=== PATIENT | female | born 1955 | race Two or more races ===

== ENCOUNTER 2016-08-23 18:29 | Emergency (ER) | payer SELFPAY ==
[2016-08-23 18:34] VITALS: BP 141/73
--- NOTE | 2016-08-23 18:39 | ER Document Report ---
ED Medical Screen (RME) - General Stated Complaint: URINARY PROBLEM Time seen by provider: 18:37 Mode of Arrival: Ambulatory Information source: Patient Notes: 60-year-old female complaining of bladder discomfort for 2 days with dysuria frequency and urgency. She also had hematuria. Status post hysterectomy 1995. No fever. sHe is nauseated but she has not thrown up. She points to her right low back which hurts, it is below the flank. I have greeted and performed a rapid initial assessment of this patient. A comprehensive ED assessment, evaluation of the patient, analysis of test results , and completion of the medical decision making process will be conducted by additional ED providers. TRAVEL OUTSIDE OF THE [place] IN LAST 30 DAYS: No - Related Data Allergies/Adverse Reactions: vancomycin [Vancomycin] Allergy (Severe, Verified 08/23/16 18:35) itching-generalizd Penicillins Allergy (Intermediate, Verified 08/23/16 18:35) Hives aspirin [Aspirin] Allergy (Mild, Verified 08/23/16 18:35) Nausea Past Medical History - Past Medical History Cardiac Medical History: Reports: Hx Hypercholesterolemia, Hx Hypertension Denies: Hx Atrial Fibrillation, Hx Congestive Heart Failure, Hx Coronary Artery Disease, Hx Heart Attack, Hx Peripheral Vascular Disease, Hx Pulmonary Embolism, Hx Heart Murmur Pulmonary Medical History: Reports: Hx Asthma, Hx Bronchitis, Hx Pneumonia Denies: Hx COPD, Hx Respiratory Failure, Hx Sleep Apnea, Hx Tuberculosis Neurological Medical History: Denies: Hx Seizures Endocrine Medical History: Denies: Hx Diabetes Mellitus Type 1, Hx Diabetes Mellitus Type 2 Malignancy Medical History: Reports: Hx Breast Cancer. Denies: Hx Lung Cancer GI Medical History: Reports: Hx Gastroesophageal Reflux Disease, Hx Hiatal Hernia. Denies: Hx Crohn's Disease, Hx Irritable Bowel, Hx Liver Failure, Hx Ulcer Musculoskeltal Medical History: Reports Hx Arthritis, Denies Hx Fibromyalgia, Denies Hx Muscular Dystrophy Psychiatric Medical History: Reports: Hx Depression Traumatic Medical History: Reports: Hx Fractures - ankle Past Surgical History: Reports: Hx Breast Surgery - benign tumors removed 1 in R breast, 3 in Left, Hx Cardiac Catheterization, Hx Cholecystectomy, Hx Hysterectomy, Hx Orthopedic Surgery - right ankle, Hx Tubal Ligation. Denies: Hx Appendectomy, Hx Bowel Surgery, Hx Section, Hx Colostomy, Hx Coronary Artery Bypass Graft, Hx Gastric Bypass Surgery, Hx Herniorrhaphy, Hx Mastectomy, Hx Pacemaker, Hx Tonsillectomy - Immunizations Hx Diphtheria, Pertussis, Tetanus Vaccination: Yes Physical Exam - Vital signs Vitals: Temp Pulse Resp BP Pulse Ox 97.4 F 74 16 141/73 H 95 08/23/16 18:33 08/23/16 18:33 08/23/16 18:33 08/23/16 18:33 08/23/16 18:33 Course - Vital Signs Vital signs: Temp Pulse Resp BP Pulse Ox 97.4 F 74 16 141/73 H 95 08/23/16 18:33 08/23/16 18:33 08/23/16 18:33 08/23/16 18:33 08/23/16 18:33
[2016-08-23 19:17] LABS: ABSOLUTE EOSINOPHILS # (AUTO) 0.2 10^3/uL (0.0-0.6); ABSOLUTE LYMPHOCYTES (AUTO) 1.6 10^3/uL (0.5-4.7); ABSOLUTE MONOCYTES (AUTO) 0.5 10^3/uL (0.1-1.4); ABSOLUTE NEUT (AUTO) 3.8 10^3/uL (1.7-8.2); BASOPHILS % (AUTO) 0.5 % (0-2); EOSINOPHILS % (AUTO) 2.8 % (0-6); HEMATOCRIT 41.7 % (36.0-47.0); HEMOGLOBIN 14.3 g/dL (12.0-15.5); HGB HCT DIFFERENCE 1.2; LYMPHOCYTES % (AUTO) 25.8 % (13-45); MEAN CORPUSCULAR HEMOGLOBIN 30.1 pg (27.0-33.4); MEAN CORPUSCULAR HGB CONC 34.3 g/dL (32.0-36.0); MEAN CORPUSCULAR VOLUME 88 fl (80-97); MONOCYTES % (AUTO) 8.6 % (3-13); RED BLOOD COUNT 4.74 10^6/uL (3.72-5.28); RED CELL DISTRIBUTION WIDTH 14.2 % (11.5-14.0); SEGMENTED NEUTROPHILS % (AUTO) 62.3 % (42-78); WHITE BLOOD COUNT 6.1 10^3/uL (4.0-10.5)
[2016-08-23 19:31] LABS: APPEARANCE,URINE SLIGHTLY-CLOUDY; BILIRUBIN,URINE NEGATIVE (NEGATIVE); GLUCOSE, URINE NEGATIVE (NEGATIVE); KETONES,URINE NEGATIVE (NEGATIVE); LEUKOCYTE ESTERASE,URINE NEGATIVE (NEGATIVE); NITRITE,URINE NEGATIVE (NEGATIVE); PROTEIN,URINE 30 mg/dL (NEGATIVE); URINE SPECIFIC GRAVITY 1.018; UROBILINOGEN,URINE NEGATIVE mg/dL (<2.0)
[2016-08-23] MEDS ORDERED: NITROFURANTOIN MONOHYD/M-CRYST 100 MG CAPSULE PO ONE (19:37)
[2016-08-23] MEDS ORDERED: IBUPROFEN 600 MG TABLET PO ONE (19:37)
--- NOTE | 2016-08-23 19:38 | ER Document Report ---
ED GI/ - General Chief Complaint: Pain With Urination Stated Complaint: URINARY PROBLEM Time seen by provider: 19:37 Mode of Arrival: Ambulatory Information source: Patient TRAVEL OUTSIDE OF THE [place] IN LAST 30 DAYS: No - HPI Patient complains to provider of: Abdominal pain, Dysuria, Hematuria Onset: Other - 4 days Timing/Duration: Persistent Quality of pain: Achy, Fullness, Pressure Pain Level: 3 Location: Suprapubic Vaginal bleeding (Compared to normal period): None Associated symptoms: Dysuria, Hematuria, Nausea Exacerbated by: Denies Relieved by: Denies Similar symptoms previously: No Recently seen / treated by doctor: No Notes: 08/24/16 03:54 Patient is a 60-year-old female who presents to the emergency room complaining of suprapubic pain with dysuria and hematuria as well as mild nausea and back pain that started approximately 4 days ago and has worsened, she denies any fever, no vomiting or diarrhea - Related Data Allergies/Adverse Reactions: vancomycin [Vancomycin] Allergy (Severe, Verified 08/23/16 18:35) itching-generalizd Penicillins Allergy (Intermediate, Verified 08/23/16 18:35) Hives aspirin [Aspirin] Allergy (Mild, Verified 08/23/16 18:35) Nausea Past Medical History - General Information source: Patient - Social History Smoking Status: Unknown if Ever Smoked Chew tobacco use (# tins/day): No Frequency of alcohol use: None Drug Abuse: None Family History: Reviewed & Not Pertinent Patient has suicidal ideation: No Patient has homicidal ideation: No - Past Medical History Cardiac Medical History: Reports: Hx Hypercholesterolemia, Hx Hypertension Denies: Hx Atrial Fibrillation, Hx Congestive Heart Failure, Hx Coronary Artery Disease, Hx Heart Attack, Hx Peripheral Vascular Disease, Hx Pulmonary Embolism, Hx Heart Murmur Pulmonary Medical History: Reports: Hx Asthma, Hx Bronchitis, Hx Pneumonia Denies: Hx COPD, Hx Respiratory Failure, Hx Sleep Apnea, Hx Tuberculosis Neurological Medical History: Denies: Hx Seizures Endocrine Medical History: Denies: Hx Diabetes Mellitus Type 1, Hx Diabetes Mellitus Type 2 Renal/ Medical History: Denies: Hx Peritoneal Dialysis Malignancy Medical History: Reports: Hx Breast Cancer. Denies: Hx Lung Cancer GI Medical History: Reports: Hx Gastroesophageal Reflux Disease, Hx Hiatal Hernia. Denies: Hx Crohn's Disease, Hx Irritable Bowel, Hx Liver Failure, Hx Ulcer Musculoskeltal Medical History: Reports Hx Arthritis, Denies Hx Fibromyalgia, Denies Hx Muscular Dystrophy Psychiatric Medical History: Reports: Hx Depression Traumatic Medical History: Reports: Hx Fractures - ankle Past Surgical History: Reports: Hx Breast Surgery - benign tumors removed 1 in R breast, 3 in Left, Hx Cardiac Catheterization, Hx Cholecystectomy, Hx Hysterectomy, Hx Orthopedic Surgery - right ankle, Hx Tubal Ligation. Denies: Hx Appendectomy, Hx Bowel Surgery, Hx Section, Hx Colostomy, Hx Coronary Artery Bypass Graft, Hx Gastric Bypass Surgery, Hx Herniorrhaphy, Hx Mastectomy, Hx Pacemaker, Hx Tonsillectomy - Immunizations Hx Diphtheria, Pertussis, Tetanus Vaccination: Yes Hx Pneumococcal Vaccination: 07/23/10 Review of Systems - Review of Systems Constitutional: No symptoms reported EENT: No symptoms reported Cardiovascular: No symptoms reported Respiratory: No symptoms reported Gastrointestinal: See HPI Genitourinary: See HPI Female Genitourinary: No symptoms reported Musculoskeletal: No symptoms reported Skin: No symptoms reported Hematologic/Lymphatic: No symptoms reported Neurological/Psychological: No symptoms reported -: Yes All other systems reviewed and negative Physical Exam - Vital signs Vitals: Temp Pulse Resp BP Pulse Ox 97.4 F 74 16 141/73 H 95 08/23/16 18:33 08/23/16 18:33 08/23/16 18:33 08/23/16 18:33 08/23/16 18:33 Interpretation: Normal - General General appearance: Appears well, Alert - HEENT Head: Normocephalic, Atraumatic Eyes: Normal Pupils: PERRL - Respiratory Respiratory status: No respiratory distress Chest status: Nontender Breath sounds: Normal Chest palpation: Normal - Cardiovascular Rhythm: Regular Heart sounds: Normal auscultation Murmur: No - Abdominal Inspection: Normal Distension: No distension Bowel sounds: Normal Tenderness: Tender - Suprapubic Organomegaly: No organomegaly - Back Back: Normal, Nontender. No: CVA tenderness - Extremities General upper extremity: Normal inspection, Nontender, Normal color, Normal ROM , Normal temperature General lower extremity: Normal inspection, Nontender, Normal color, Normal ROM , Normal temperature, Normal weight bearing. No: Jules's sign - Neurological Neuro grossly intact: Yes Cognition: Normal Orientation: AAOx4 [place] Coma Scale Eye Opening: Spontaneous Renny Coma Scale Verbal: Oriented Renny Coma Scale Motor: Obeys Commands Renny Coma Scale Total: 15 Speech: Normal Motor strength normal: LUE, RUE, LLE, RLE Sensory: Normal - Psychological Associated symptoms: Normal affect, Normal mood - Skin Skin Temperature: Warm Skin Moisture: Dry Skin Color: Normal Course - Re-evaluation Re-evalutation: 08/24/16 03:55 Patient with evidence of urinary tract infection on urinalysis, symptoms antibiotics and advised to follow-up with her primary care provider in 2-3 days or return if symptoms worsen, patient acknowledges understanding and agreement with this plan - Vital Signs Vital signs: Temp Pulse Resp BP Pulse Ox 97.4 F 74 16 141/73 H 95 08/23/16 18:33 08/23/16 18:33 08/23/16 18:33 08/23/16 18:33 08/23/16 18:33 - Laboratory Result Diagrams: 08/23/16 19:08 08/23/16 19:08 Laboratory results interpreted by me: 08/23/16 08/23/16 18:40 19:08 RDW 14.2 H Urine Protein 30 H Urine Blood SMALL H Discharge - Discharge Clinical Impression: Urinary tract infection Qualifiers: Urinary tract infection type: site unspecified Hematuria presence: with hematuria Qualified Code(s): N39.0 - Urinary tract infection, site not specified Condition: Stable Disposition: HOME, SELF-CARE Instructions: Urinary Tract Infection ([facility]), Nitrofurantoin ([facility]) Additional Instructions: Follow up with your primary care provider in one to 2 days. Return to the emergency room immediately if symptoms worsen or any additional concerns. Prescriptions: Nitrofurantoin/Nitrofuran Mac [Macrobid 100 mg Capsule] 100 mg PO BID #20 capsule
== END 2016-08-23 20:20 | disposition home or self-care (01) ==
LOC: ER 18:29
DX: N39.0 Urinary tract infection, site not specified (principal); B96.20 Unspecified Escherichia coli [E. coli] as the cause of diseases classified elsewhere; R31.9 Hematuria, unspecified; R11.0 Nausea; R10.30 Lower abdominal pain, unspecified; M54.9 Dorsalgia, unspecified; I10 Essential (primary) hypertension; J45.909 Unspecified asthma, uncomplicated; Z88.1 Allergy status to other antibiotic agents; Z88.0 Allergy status to penicillin; Z88.6 Allergy status to analgesic agent; Z85.3 Personal history of malignant neoplasm of breast
CPT/HCPCS: 99283; 36415; 87086; 85025; 87088; 81001; 87186; J8499

== ENCOUNTER → 2016-09-24 | Outpatient (CLI) | payer OTHER ==
[2016-09-24 14:13] LABS: ALANINE AMINOTRANSFERASE 33 U/L (9-52); ALBUMIN 4.6 g/dL (3.5-5.0); ALKALINE PHOSPHATASE 87 U/L (38-126); ANION GAP 12 (5-19); ASPARTATE AMINO TRANSFERASE 22 U/L (14-36); BILIRUBIN,DIRECT 0.1 mg/dL (0.0-0.4); BILIRUBIN,TOTAL 0.8 mg/dL (0.2-1.3); BLOOD UREA NITROGEN 16 mg/dL (7-20); CALCIUM 9.9 mg/dL (8.4-10.2); CARBON DIOXIDE 29 mmol/L (22-30); CHLORIDE 104 mmol/L (98-107); CHOLESTEROL 226.49 mg/dL (0-200); CREATININE RESULT 0.99 mg/dL (0.52-1.25); Direct HDL 60 mg/dL (>40); GLUCOSE 91 mg/dL (75-110); POTASSIUM 5.2 mmol/L (3.6-5.0); TOTAL PROTEIN 7.6 g/dL (6.3-8.2); TRIGLYCERIDES 154 mg/dL (<150)
[2016-09-24 14:24] LABS: DIRECT LDL 115 mg/dL (<100)
[2016-09-24 14:26] LABS: VLDL CHOLESTEROL 30.8 mg/dL (10-31)
--- NOTE | 2016-09-24 22:03 | EKG REPORT ---
SEVERITY:- NORMAL ECG - SINUS RHYTHM : Confirmed by: Cesia Jessica MD 24-Sep-2016 22:02:56
== END ==
LOC: CCC 12:36
DX: Z00.00 Encounter for general adult medical examination without abnormal findings (principal); I10 Essential (primary) hypertension; R42 Dizziness and giddiness
CPT/HCPCS: 36415; 80053; 80061; 83036; 84443; 93005; 93010

== ENCOUNTER → 2017-01-05 | Outpatient (CLI) | payer OTHER ==
--- NOTE | 2017-01-05 18:07 | RADIOLOGY REPORT (SQ) ---
EXAM DESCRIPTION: HIP RIGHT AP/LATERAL COMPLETED DATE/TIME: 01/05/2017 5:59 pm REASON FOR STUDY: RIGHT HIP/GROIN PAIN, ARTHRITIS COMPARISON: None. NUMBER OF VIEWS: Two views. TECHNIQUE: AP pelvis and additional frog-leg view of the right hip. LIMITATIONS: None. FINDINGS: MINERALIZATION: Normal. RIGHT HIP: No fracture or dislocation. No worrisome bone lesions. LEFT HIP: No fracture or dislocation. No worrisome bone lesions. PUBIS AND ISCHIUM: No fracture. PELVIS: No fracture. SACRUM: No fracture or dislocation. No worrisome bone lesions. LOWER LUMBAR SPINE: No fracture or dislocation. No worrisome bone lesions. No significant disc disea se. SOFT TISSUES: No findings. OTHER: No other significant finding. IMPRESSION: NEGATIVE STUDY OF THE RIGHT HIP. NO RADIOGRAPHIC EVIDENCE OF ACUTE INJURY. TECHNICAL DOCUMENTATION: JOB ID: [id number] [employer]- All Rights Reserved
== END ==
LOC: RAD 17:38
DX: M25.551 Pain in right hip (principal); M13.851 Other specified arthritis, right hip

== ENCOUNTER → 2017-07-09 | Outpatient (CLI) | payer OTHER ==
--- NOTE | 2017-07-09 14:07 | RADIOLOGY REPORT (SQ) ---
EXAM DESCRIPTION: HIP LEFT AP/LATERAL COMPLETED DATE/TIME: 07/09/2017 1:49 pm REASON FOR STUDY: LEFT HIP PAIN COMPARISON: None. NUMBER OF VIEWS: Two views. TECHNIQUE: AP pelvis and additional frog-leg view of the left hip. LIMITATIONS: None. FINDINGS: MINERALIZATION: Osteopenia. LEFT HIP: No fracture or dislocation. No worrisome bone lesions. No joint space narrowing. No acet abular bony spurring RIGHT HIP: No fracture or dislocation. No worrisome bone lesions. No joint space narrowing. No jose tabular bony spurring PUBIS AND ISCHIUM: No fracture. PELVIS: No fracture. SACRUM: Sclerosis inferior right SI joint LOWER LUMBAR SPINE: Lower lumbar facet arthropathy left greater than right at L4-5 and L5-S1 SOFT TISSUES: No findings. OTHER: No other significant finding. IMPRESSION: No acute fracture or malalignment. TECHNICAL DOCUMENTATION: JOB ID: [id number] [employer]- All Rights Reserved
== END ==
LOC: RAD 13:17
PROVIDERS: ATTEND Family Medicine
DX: M25.552 Pain in left hip (principal); R13.19 Other dysphagia

== ENCOUNTER → 2017-07-17 | Outpatient (CLI) | payer OTHER ==
--- NOTE | 2017-07-17 12:29 | RADIOLOGY REPORT (SQ) ---
EXAM DESCRIPTION: BARIUM SWALLOW ESOPHAGUS COMPLETED DATE/TIME: 07/17/2017 8:53 am REASON FOR STUDY: DYSPHAGIA R13.10 DYSPHAGIA, UNSPECIFIED COMPARISON: None. TECHNIQUE: Under fluoroscopic guidance, patient ingested effervescent granules followed by thick and thin barium. Fluoroscopic spot images and routine radiographic images acquired and stored on PACS. 12 MM BARIUM TABLET GIVEN: Yes. No significant delay in passage. LIMITATIONS: None. FLUOROSCOPY TIME: 0.4 minutes 6 fluoroscopy images saved to PACS. FINDINGS: NEUROMUSCULAR COORDINATION OF SWALLOW: Normal. No aspiration. ESOPHAGEAL MOTILITY: Normal peristalsis. No esophageal spasm. ESOPHAGEAL MUCOSA: Normal mucosa without masses or ulceration. GASTRO-ESOPHAGEAL JUNCTION: No hiatal hernia or reflux. NON-GI TRACT STRUCTURES: No significant finding. OTHER: No other significant finding. IMPRESSION: NORMAL DOUBLE CONTRAST BARIUM SWALLOW. COMMENT: Quality ID 145: Final reports for procedures using fluoroscopy that document radiation exp osure indices, or exposure time and number of fluorographic images (if radiation exposure indices are not available) TECHNICAL DOCUMENTATION: JOB ID: [id number] [employer]- All Rights Reserved
== END ==
LOC: RAD 08:05
DX: R13.19 Other dysphagia (principal)
CPT/HCPCS: 74220

== ENCOUNTER → 2017-12-08 | Outpatient (CLI) | payer OTHER ==
--- NOTE | 2017-12-09 07:40 | WOMENS IMAGING REPORT ---
EXAM DESCRIPTION: BILAT DIAGNOSTIC MAMMO W/CAD COMPLETED DATE/TIME: 12/08/2017 11:22 am REASON FOR STUDY: HX OF BREAST LUMPS Z85.3 PERSONAL HISTORY OF MALIGNANT NEOPLASM OF BREAST COMPARISON: Multiple since 2008 TECHNIQUE: Standard craniocaudal and mediolateral oblique views of each breast recorded using digita l acquisition. Additional left breast 90 mediolateral view LIMITATIONS: None. FINDINGS: RIGHT BREAST MASSES: No suspicious masses. CALCIFICATIONS: No new or suspicious calcifications. ARCHITECTURAL DISTORTION: None. DEVELOPING DENSITY: None. ASYMMETRY: None noted. OTHER: No other significant findings. LEFT BREAST MASSES: No suspicious masses. Stable small intramammary lymph node left upper-outer quadrant. CALCIFICATIONS: No new or suspicious calcifications. ARCHITECTURAL DISTORTION: None. DEVELOPING DENSITY: None. ASYMMETRY: None noted. OTHER: No other significant finding. Read with the assistance of CAD: .[facility] - R2 [employer] Version 1.3 .[facility] - R2 Cenova Version 1.3 .[facility] - R2 Cenova Version 2.4 .[facility] – [place] - R2 Cenova Version 2.4 .[facility] - R2 [employer] Version 9.2 IMPRESSION: No mammographic evidence for malignancy BREAST DENSITY: b. There are scattered areas of fibroglandular density. BIRAD: 1 Negative. RECOMMENDATION: RECOMMENDED FOLLOW UP: Please continue yearly bilateral screening mammography SPECIFIC INTERVENTION/IMAGING/CONSULTATION RECOMMENDED:No additional intervention/ imaging/consultati on needed at this time. COMMUNICATION:The negative/benign results were communicated to the patient. COMMENT: The patient has been notified of the results by letter per SA requirements. Additional no tification policies are in place for contacting patient with suspicious or incomplete findings. Quality ID #225: The [employer] recommends an annual screening mammogram for women aged 40 years or over. This facility utilizes a reminder system to ensure that all patients receive reminder letters, and/or direct phone calls for appointments. This includes reminders for routine scr eening mammograms, diagnostic mammograms, or other Breast Imaging Interventions when appropriate. Th is patient will be placed in the appropriate reminder system. The [employer] (ACR) has developed recommendations for screening MRI of the breast s in certain patient populations, to be used in conjunction with mammography. Breast MRI surveillanc e may be appropriate for women with more than 20% lifetime risk of developing breast cancer as deter mined by genetic testing, significant family history of the disease, or history of mantle radiation f or Hodgkins Disease. ACR Practice Guidelines 2008. TECHNICAL DOCUMENTATION: FINDING NUMBER: (1) ASSESSMENT: (1) JOB ID: [id number] [employer]- All Rights Reserved Reading location - IP/workstation name: [email or web address]
== END ==
LOC: WI 11:02
DX: Z85.3 Personal history of malignant neoplasm of breast (principal)
CPT/HCPCS: 77066

== ENCOUNTER → 2018-04-28 | Outpatient (CLI) | payer OTHER ==
--- NOTE | 2018-04-28 15:05 | RADIOLOGY REPORT (SQ) ---
EXAM DESCRIPTION: TIBIA FIBULA LEFT COMPLETED DATE/TIME: 04/28/2018 2:34 pm REASON FOR STUDY: PAIN IN LT LEG M79.605 PAIN IN LEFT LEG COMPARISON: None. NUMBER OF VIEWS: Two views. TECHNIQUE: Two radiographic images acquired of the left tibia and fibula to include the knee and ank le in at least one projection. LIMITATIONS: None. FINDINGS: MINERALIZATION: Normal. BONES: No acute fracture or dislocation. No worrisome bone lesions. SOFT TISSUES: No obvious swelling or foreign body. OTHER: No other significant finding. IMPRESSION: NEGATIVE STUDY OF THE LEFT TIBIA AND FIBULA. NO RADIOGRAPHIC EVIDENCE OF ACUTE INJURY. TECHNICAL DOCUMENTATION: JOB ID: [id number] [employer]- All Rights Reserved Reading location - IP/workstation name: [email or web address]
== END ==
LOC: OD 14:01
DX: M79.605 Pain in left leg (principal)

== ENCOUNTER → 2018-11-23 | Outpatient (CLI) | payer MEDICARE, OTHER ==
[2018-11-23 10:50] LABS: APPEARANCE,URINE CLEAR; BILIRUBIN,URINE NEGATIVE (NEGATIVE); COLOR,URINE YELLOW; GLUCOSE, URINE NEGATIVE (NEGATIVE); KETONES,URINE NEGATIVE (NEGATIVE); LEUKOCYTE ESTERASE,URINE NEGATIVE (NEGATIVE); NITRITE,URINE NEGATIVE (NEGATIVE); PROTEIN,URINE NEGATIVE (NEGATIVE); URINE SPECIFIC GRAVITY 1.015; UROBILINOGEN,URINE NEGATIVE mg/dL (<2.0)
[2018-11-23 11:00] LABS: ABSOLUTE EOSINOPHILS # (AUTO) 0.2 10^3/uL (0.0-0.6); ABSOLUTE LYMPHOCYTES (AUTO) 1.7 10^3/uL (0.5-4.7); ABSOLUTE MONOCYTES (AUTO) 0.5 10^3/uL (0.1-1.4); ABSOLUTE NEUT (AUTO) 2.1 10^3/uL (1.7-8.2); BASOPHILS % (AUTO) 0.6 % (0-2); EOSINOPHILS % (AUTO) 3.8 % (0-6); HEMATOCRIT 41.4 % (36.0-47.0); HEMOGLOBIN 13.9 g/dL (12.0-15.5); LYMPHOCYTES % (AUTO) 37.9 % (13-45); MEAN CORPUSCULAR HEMOGLOBIN 29.8 pg (27.0-33.4); MEAN CORPUSCULAR HGB CONC 33.6 g/dL (32.0-36.0); MEAN CORPUSCULAR VOLUME 89 fl (80-97); MONOCYTES % (AUTO) 11.4 % (3-13); PLATELET COUNT 202 10^3/uL (150-450); RED BLOOD COUNT 4.68 10^6/uL (3.72-5.28); RED CELL DISTRIBUTION WIDTH 13.5 % (11.5-14.0); SEGMENTED NEUTROPHILS % (AUTO) 46.3 % (42-78); TOTAL CELLS COUNTED % (AUTO) 100 %; WHITE BLOOD COUNT 4.6 10^3/uL (4.0-10.5)
[2018-11-23 11:21] LABS: ALANINE AMINOTRANSFERASE 24 U/L (9-52); ALKALINE PHOSPHATASE 68 U/L (38-126); ANION GAP 8 (5-19); ASPARTATE AMINO TRANSFERASE 23 U/L (14-36); BILIRUBIN,DIRECT 0.2 mg/dL (0.0-0.4); BILIRUBIN,TOTAL 0.5 mg/dL (0.2-1.3); BLOOD UREA NITROGEN 12 mg/dL (7-20); CALCIUM 9.6 mg/dL (8.4-10.2); CARBON DIOXIDE 33 mmol/L (22-30); CHLORIDE 103 mmol/L (98-107); CHOLESTEROL 151.95 mg/dL (0-200); GLUCOSE 90 mg/dL (75-110); POTASSIUM 4.2 mmol/L (3.6-5.0); SODIUM 143.7 mmol/L (137-145); TOTAL PROTEIN 6.7 g/dL (6.3-8.2); TRIGLYCERIDES 106 mg/dL (<150); URIC ACID 4.4 mg/dL (2.5-7.5)
[2018-11-23 11:33] LABS: DIRECT LDL 85 mg/dL (<100)
[2018-11-23 11:50] LABS: THYROID STIMULATING HORMONE 4.11 uIU/mL (0.47-4.68)
[2018-11-24 10:38] LABS: CREATININE URINE 147.1 mg/dL (Not Estab.); MICROALBUMIN URINE <3.0 ug/mL (Not Estab.)
== END ==
LOC: LAB 10:23
PROVIDERS: ATTEND Internal Medicine
DX: I10 Essential (primary) hypertension (principal)
CPT/HCPCS: 36415; 80053; 80061; 81001; 82043; 82570; 84439; 84443; 84550; 85025

== ENCOUNTER → 2018-11-29 | Outpatient (CLI) | payer MEDICARE ==
--- NOTE | 2018-11-29 16:06 | RADIOLOGY REPORT (SQ) ---
EXAM DESCRIPTION: CT CERVICAL SPINE WITHOUT COMPLETED DATE/TIME: 11/29/2018 1:33 pm REASON FOR STUDY: M54.12 RADICULOPATHY, CERVICAL REGION M54.12 RADICULOPATHY, CERVICAL REGION Z12.3 1 ENCNTR SCREEN MAMMOGRAM FOR MALIGNANT NEOPLASM OF SONY COMPARISON: None. TECHNIQUE: Axial images acquired through the cervical spine without intravenous contrast. Images re viewed with lung, soft tissue and bone windows. Reconstructed coronal and sagittal MPR images review ed. Images stored on PACS. All CT scanners at this facility use dose modulation, iterative reconstruction, and/or weight based d osing when appropriate to reduce radiation dose to as low as reasonably achievable (ALARA). [facility]: Dose Right [facility]: CareDose [facility]: Dose Right [facility]: Teradose 4D [facility]: Quickcue RADIATION DOSE: CT Rad equipment meets quality standard of care and radiation dose reduction techniq ues were employed. CTDIvol: 20.1 mGy. DLP: 469 mGy-cm. mGy. LIMITATIONS: None. FINDINGS: ALIGNMENT: Anatomic. MINERALIZATION: Normal. VERTEBRAL BODIES: No fractures or dislocation. DISCS: Mild degenerative disc disease in the lower cervical spine. FACETS, LATERAL MASSES, POSTERIOR ELEMENTS: Mild facet arthropathy. No fractures. No dislocation. No acute findings. HARDWARE: None in the spine. VISUALIZED RIBS: No fractures. LUNG APICES AND SOFT TISSUES: No significant or acute findings. OTHER: No other significant finding. IMPRESSION: MILD DEGENERATIVE CHANGES IN THE LOWER CERVICAL SPINE. NO ACUTE FINDINGS. TECHNICAL DOCUMENTATION: JOB ID: [id number] Quality ID # [id number]: Final reports with documentation of one or more dose reduction techniques (e.g., Au tomated exposure control, adjustment of the mA and/or kV according to patient size, use of iterative reconstruction technique) 2010 [employer]- All Rights Reserved Reading location - IP/workstation name: [email or web address]
== END ==
LOC: RAD 13:04
PROVIDERS: ATTEND Internal Medicine
DX: Z12.31 Encounter for screening mammogram for malignant neoplasm of breast (principal); M54.12 Radiculopathy, cervical region
CPT/HCPCS: 72125

== ENCOUNTER → 2019-03-16 | Outpatient (CLI) | payer MEDICARE ==
--- NOTE | 2019-03-16 14:42 | WOMENS IMAGING REPORT ---
EXAM DESCRIPTION: 3D SCREENING MAMMO BILAT COMPLETED DATE/TIME: 03/16/2019 2:06 pm REASON FOR STUDY: Z12.31 ENCOUNTER FOR SCREENING MAMMOGRAM FOR MALIGNANT NEOPLASM OF BREAST Z12.31 ENCNTR SCREEN MAMMOGRAM FOR MALIGNANT NEOPLASM OF SONY COMPARISON: [id number] EXAM PARAMETERS: Views: Standard craniocaudal and mediolateral oblique views of each breast recorded using digital acquisition and breast tomosynthesis. Read with the assistance of CAD. .[facility] - [employer] Version 9.2 LIMITATIONS: None. FINDINGS: No suspicious masses, suspicious calcifications or architectural distortion. No areas of c oncern. IMPRESSION: NEGATIVE MAMMOGRAM. BIRADS 1. BREAST DENSITY: b. There are scattered areas of fibroglandular density. BIRAD: ASSESSMENT: 1 NEGATIVE RECOMMENDATION: ROUTINE SCREENING COMMENT: The patient has been notified of the results by letter per MQSA requirements. Additional no tification policies are in place for contacting patient with suspicious or incomplete findings. Quality ID #225: The [employer] recommends an annual screening mammogram for women aged 40 years or over. This facility utilizes a reminder system to ensure that all patients receive reminder letters, and/or direct phone calls for appointments. This includes reminders for routine scr eening mammograms, diagnostic mammograms, or other Breast Imaging Interventions when appropriate. Th is patient will be placed in the appropriate reminder system. TECHNICAL DOCUMENTATION: FINDING NUMBER: (1) ASSESSMENT: (1) JOB ID: [id number] [employer]- All Rights Reserved Reading location - IP/workstation name: [email or web address]
== END ==
LOC: WI 13:44
PROVIDERS: ATTEND Internal Medicine
DX: Z12.31 Encounter for screening mammogram for malignant neoplasm of breast (principal)
CPT/HCPCS: 77063; 77067

== ENCOUNTER 2019-04-26 10:56 | Day surgery (SDC) | payer MEDICARE ==
[~2019-04-26 10:56] MED LIST: BUPIVACAINE HCL 0.75% INJ/PF (7.5 MG/1 ML) 10 ML SDV OS PRN; KETOROLAC TROMETHAMINE 0.45% 4 DROP/0.4 ML DROPERETTE OS PRN; LIDOCAINE 1% INJ-PF (10 MG/ML) 30 ML SDV ONE; LIDOCAINE 4% INJ/PF (40 MG/ML) 5 ML AMPUL OS PRN
[2019-04-26] MEDS: CYCLOPENTOLATE 0.2%/PHENYLEPHRINE 1% OPH SOLN 2 ML OS PRN ×3 (12:04→12:24)
[2019-04-26] MEDS: TROPICAMIDE 1% OPH SOLN 15 ML OS PRN ×3 (12:04→12:24)
[2019-04-26] MEDS: BESIFLOXACIN HCL 0.6% OPH SUSP 5 ML BOTTLE OS PRN ×4 (12:04→13:19)
[2019-04-26] MEDS: TETRACAINE HCL 0.5% OPH SOLN 4 ML OS PRN ×3 (12:05→12:49)
[2019-04-26] MEDS ORDERED: MIDAZOLAM 2 MG/2 ML INJ ONE (12:40)
[2019-04-26] MEDS ORDERED: FENTANYL CITRATE INJ/PF 100 MCG/2 ML AMPUL ONE (12:40)
[2019-04-26] MEDS: LIDOCAINE 1%/PHENYLEPHRINE 1.5% 1 ML VIAL ONE ×2 (13:01)
[2019-04-26] MEDS: EPINEPHRINE INJ/PF 1 MG/1 ML AMPULE ONE ×2 (13:01)
[2019-04-26] MEDS: CHONDR SU A NA/HYALUR INTRAOC KIT (SURGICARE) ONE ×2 (13:01)
[2019-04-26] MEDS: DORZOLAMIDE HCL 2%/TIMOLOL MALEAT 0.5% OPH SOLN 10 ML OS PRN ×2 (13:19)
--- NOTE | 2019-04-26 13:27 | Operative Report ---
Operative Report-[facility] Operative Report: DATE OF SURGERY: 04/26/2019 PREOPERATIVE DIAGNOSIS: 1. CATARACT, LEFT EYE. 2. PUPIL MIOSIS, LEFT EYE POSTOPERATIVE DIAGNOSIS: 1. CATARACT, LEFT EYE. 2. PUPIL MIOSIS, LEFT EYE PROCEDURE PERFORMED: COMPLEX CATARACT EXTRACTION WITH INTRAOCULAR LENSES, LEFT EYE Intraocular Lens Model: ZCBOO 22.5 Total Phaco Time: 3.74 CDE SURGEON: HERMELINDA SABILLON MD ANESTHESIA: Topical with MAC plus intraocular phenylephrine and lidocaine INDICATIONS FOR SURGERY: Difficulty seen words on TV Indications for complex: Poor pupil dilation requiring the use of Mylugan ring PROCEDURE: The patient was brought to the operating room placed on operating table. Topical anesthesia was administered. This consisted of instrument wipe pledgets soaked in a solution of 4% Xylocaine mixed with 0.75% Marcaine in a 1:2 ratio. A 2 x 1 cm pledget was placed in the superior fornix. A 1 x 1 cm pledget was placed in the inferior fornix. The eye was patched for 5 minutes. The patch and pledgets were removed. The eye was sterilely prepped and draped in the usual manner. A lid speculum was placed in the eye. A 4-0 black silk suture was placed around the superior and inferior rectus muscle to use as traction. A conjunctival peritomy was made at the 10 o'clock position. Hemostasis was obtained with bipolar cautery. A posterior limbal groove was created using a crescent knife and dissected anteriorly towards the cornea. Sharp point blade was used to create a paracentesis site at the 2 o'clock position. A 2.4 mm keratome was used into the anterior chamber through the groove. Then 0.5 mL of 1% non-preserved lidocaine was injected into the anterior chamber. Viscoelastic was injected into the anterior chamber. Pupil dilation was approximately 4.5 mm. A Malyugin Ring was placed stabilizing the iris. An anterior capsulotomy was performed using Utrata forceps in a capsulorrhexis fashion. Hydrodissection and hydrodelineation was performed. Phacoemulsification was performed in the divide and conquer technique. Following this, that I/A unit was used to remove residual cortex. Viscoelastic was injected into the capsular bag. Intraocular lens were placed in the capsular bag. The Malyugin ring haptics were removed and the ring was removed from the eye. The I/A unit was used to remove residual viscoelastic. The wound was seen to be watertight under high and low pressure and no sutures were placed. The 4-0 black silk sutures and lid speculum were removed. The eye was shielded after Besivance and Cosopt drops were placed. The patient tolerated the procedure well and was sent to recovery room in good condition.
== END 2019-04-26 14:22 | disposition home or self-care (01) ==
LOC: SC 10:56
PROVIDERS: ATTEND Ophthalmology
DX: H25.813 Combined forms of age-related cataract, bilateral (principal); H57.03 Miosis; H04.123 Dry eye syndrome of bilateral lacrimal glands; H10.45 Other chronic allergic conjunctivitis; I10 Essential (primary) hypertension; E78.00 Pure hypercholesterolemia, unspecified; J45.909 Unspecified asthma, uncomplicated; I49.9 Cardiac arrhythmia, unspecified
CPT/HCPCS: 66982; J2250; J3490 ×4; A9270; J0171; J3010; J2370; V2632

== ENCOUNTER → 2019-05-03 | Outpatient (CLI) | payer MEDICARE ==
--- NOTE | 2019-05-03 17:30 | RADIOLOGY REPORT (SQ) ---
EXAM DESCRIPTION: CTA CHEST COMPLETED DATE/TIME: 05/03/2019 4:53 pm REASON FOR STUDY: R06.02 SHORTNESS OF BREATH R06.02 SHORTNESS OF BREATH COMPARISON: 2010 TECHNIQUE: CT scan of the chest performed using helical scanning technique with dynamic intravenous contrast injection. Images reviewed with lung, soft tissue and bone windows. Reconstructed coronal and sagittal MPR images reviewed. Additional 3 dimensional post-processing performed to develop Maximal Intensity Projection images (SC P). All images stored on PACS. All CT scanners at this facility use dose modulation, iterative reconstruction, and/or weight based d osing when appropriate to reduce radiation dose to as low as reasonably achievable (ALARA). [facility]: Dose Right [facility]: CareDose [facility]: Dose Right [facility]: Teradose 4D [facility]: The Micro CONTRAST TYPE AND DOSE: contrast/concentration: Isovue 350.00 mg/ml; Total Contrast Delivered: 48.0 ml; Total Saline Delivered: 78.0 ml RENAL FUNCTION: GFR > 60. RADIATION DOSE: CT Rad equipment meets quality standard of care and radiation dose reduction techniq ues were employed. CTDIvol: 3.8 - 8.7 mGy. DLP: 296 mGy-cm. . LIMITATIONS: None. FINDINGS: LUNGS AND PLEURA: Mild motion. Otherwise clear. No significant pleural fluid. No pneumo thorax. AORTA AND GREAT VESSELS: Aorta less than optimally opacified given phase of contrast. No evidence of aneurysm or dissection however. Great vessel origins are patent. HEART: No pericardial effusion. Mild coronary calcification. Normal heart size. PULMONARY ARTERIES: No emboli identified allowing for mildly limiting motion. HILAR AND MEDIASTINAL STRUCTURES: No identified masses or abnormal nodes. HARDWARE: None in the chest. UPPER ABDOMEN: No significant findings. Limited exam. THYROID AND OTHER SOFT TISSUES: No masses. No adenopathy. BONES: No acute or significant finding. 3D MIPS: Confirm above findings. OTHER: No other significant finding. IMPRESSION: 1. No acute or suspicious thoracic abnormality. No evidence of pulmonary embolus or acute aortic pat hology. Generally clear lungs allowing for motion. COMMENT: Quality ID # [id number]: Final reports with documentation of one or more dose reduction techniques (e.g., Automated exposure control, adjustment of the mA and/or kV according to patient size, use of iterative reconstruction technique) TECHNICAL DOCUMENTATION: JOB ID: [id number] [employer]- All Rights Reserved Reading location - IP/workstation name: [email or web address]
== END ==
LOC: RAD 16:28
PROVIDERS: ATTEND Internal Medicine
DX: R06.02 Shortness of breath (principal)
CPT/HCPCS: 71275; 82565

== ENCOUNTER 2019-05-17 08:53 | Day surgery (SDC) | payer MEDICARE ==
[~2019-05-17 08:53] MED LIST changes: +BUPIVACAINE HCL 0.75% INJ/PF (7.5 MG/1 ML) 10 ML SDV OD PRN; -BUPIVACAINE HCL 0.75% INJ/PF (7.5 MG/1 ML) 10 ML SDV OS PRN; +KETOROLAC TROMETHAMINE 0.45% 4 DROP/0.4 ML DROPERETTE OD PRN; -KETOROLAC TROMETHAMINE 0.45% 4 DROP/0.4 ML DROPERETTE OS PRN; +LIDOCAINE 4% INJ/PF (40 MG/ML) 5 ML AMPUL OD PRN; -LIDOCAINE 4% INJ/PF (40 MG/ML) 5 ML AMPUL OS PRN
[2019-05-17] MEDS ORDERED: MIDAZOLAM 2 MG/2 ML INJ ONE (08:55)
[2019-05-17] MEDS ORDERED: ONDANSETRON HCL INJ/PF 4 MG/2 ML SDV ONE (08:55)
[2019-05-17] MEDS ORDERED: FENTANYL CITRATE INJ/PF 100 MCG/2 ML AMPUL ONE (08:55)
[2019-05-17] MEDS: CYCLOPENTOLATE 0.2%/PHENYLEPHRINE 1% OPH SOLN 2 ML OD PRN ×3 (09:30→09:50)
[2019-05-17] MEDS: TETRACAINE HCL 0.5% OPH SOLN 4 ML OD PRN ×4 (09:30→10:07)
[2019-05-17] MEDS: TROPICAMIDE 1% OPH SOLN 15 ML OD PRN ×3 (09:30→09:50)
[2019-05-17] MEDS: BESIFLOXACIN HCL 0.6% OPH SUSP 5 ML BOTTLE OD PRN ×4 (09:30→10:36)
[2019-05-17] MEDS: LIDOCAINE 1%/PHENYLEPHRINE 1.5% 1 ML VIAL ONE ×2 (10:20)
[2019-05-17] MEDS: EPINEPHRINE INJ/PF 1 MG/1 ML AMPULE ONE ×2 (10:20)
[2019-05-17] MEDS: CHONDR SU A NA/HYALUR INTRAOC KIT (SURGICARE) ONE ×2 (10:20)
[2019-05-17] MEDS: DORZOLAMIDE HCL 2%/TIMOLOL MALEAT 0.5% OPH SOLN 10 ML OD PRN ×2 (10:36)
--- NOTE | 2019-05-17 12:51 | Operative Report ---
Operative Report-[facility] Operative Report: DATE OF SURGERY: 05/17/2019 PREOPERATIVE DIAGNOSIS: 1. CATARACT, RIGHT EYE 2. PUPIL MIOSIS, RIGHT EYE POSTOPERATIVE DIAGNOSIS: 1. CATARACT, RIGHT EYE 2. PUPIL MIOSIS, EIGHT EYE PROCEDURE PERFORMED: COMPLEX CATARACT EXTRACTION WITH INTRAOCULAR LENSES, RIGHT EYE Intraocular Lens Model: ZCBOO 22.0 Total Phaco Time: 2.79 CDE SURGEON: HERMELINDA SABILLON MD ANESTHESIA: Topical with MAC plus intraocular phenylephrine and lidocaine INDICATIONS FOR SURGERY: Difficulty reading road signs Indications for complex: Poor pupil dilation requiring the use of ring PROCEDURE: The patient was brought to the operating room placed on operating table. Topical anesthesia was administered. This consisted of instrument wipe pledgets soaked in a solution of 4% Xylocaine mixed with 0.75% Marcaine in a 1:2 ratio. A 2 x 1 cm pledget was placed in the superior fornix. A 1 x 1 cm pledget was placed in the inferior fornix. The eye was patched for 5 minutes. The patch and pledgets were removed. The eye was sterilely prepped and draped in the usual manner. A lid speculum was placed in the eye. A 4-0 black silk suture was placed around the superior and inferior rectus muscle to use as traction. A conjunctival peritomy was made at the 10 o'clock position. Hemostasis was obtained with bipolar cautery. A posterior limbal groove was created using a crescent knife and dissected anteriorly towards the cornea. Sharp point blade was used to create a paracentesis site at the 2 o'clock position. A 2.4 mm keratome was used into the anterior chamber through the groove. Then 0.5 mL of 1% non-preserved lidocaine was injected into the anterior chamber. Viscoelastic was injected into the anterior chamber. Pupil dilation was approximately 4.5 mm. A Malyugin Ring was placed stabilizing the iris. An anterior capsulotomy was performed using Utrata forceps in a capsulorrhexis fashion. Hydrodissection and hydrodelineation was performed. Phacoemulsification was performed in the divide and conquer technique. Following this, that I/A unit was used to remove residual cortex. Viscoelastic was injected into the capsular bag. Intraocular lens were placed in the capsular bag. The Malyugin ring haptics were removed and the ring was removed from the eye. The I/A unit was used to remove residual viscoelastic. The wound was seen to be watertight under high and low pressure and no sutures were placed. The 4-0 black silk sutures and lid speculum were removed. The eye was shielded after Besivance and Cosopt drops were placed. The patient tolerated the procedure well and was sent to recovery room in good condition.
== END 2019-05-17 11:18 | disposition home or self-care (01) ==
LOC: SC 08:53
PROVIDERS: ATTEND Ophthalmology
DX: H25.811 Combined forms of age-related cataract, right eye (principal); Z96.1 Presence of intraocular lens; H57.03 Miosis; J45.909 Unspecified asthma, uncomplicated; Z79.51 Long term (current) use of inhaled steroids; I10 Essential (primary) hypertension
CPT/HCPCS: 66982; V2632; J2250; J3490 ×5; A9270; J0171; J2405; J2370; 142; J3010

== ENCOUNTER 2019-07-21 14:19 | Emergency (ER) | payer MEDICARE ==
[2019-07-21] MEDS ORDERED: ACETAMINOPHEN 325 MG TABLET PO ONE (15:51)
--- NOTE | 2019-07-21 16:51 | ER Document Report ---
ED General - General Chief Complaint: Hip Injury Stated Complaint: FALL Time Seen by Provider: 07/21/19 16:43 Primary Care Provider: RASHAAD BOATENG MD [Primary Care Provider] - Follow up in 1 week Mode of Arrival: Medic Information source: Patient, Relative Notes: 63-year-old female with history of asthma presents emergency department with complaints of left hip pain left lower back pain. Daughter reports they were coming out of [employer], she tripped over the parking block and landed on her hip. She did not hit her head no change in LOC. Patient complains of pain with movement. Patient reports she tripped. She denies feeling dizzy or lightheaded. Patient reports that he had to call EMS because she could not get up due to the pain. TRAVEL OUTSIDE OF THE [place] IN LAST 30 DAYS: No - HPI Onset: Just prior to arrival Onset/Duration: Sudden Quality of pain: Achy Pain Level: 3 Associated symptoms: None Exacerbated by: Movement, Walking Relieved by: Denies Similar symptoms previously: No Recently seen / treated by doctor: No - Related Data Allergies/Adverse Reactions: vancomycin [Vancomycin] Allergy (Severe, Verified 07/21/19 15:02) itching-generalizd Penicillins Allergy (Intermediate, Verified 07/21/19 15:02) Hives Past Medical History - General Information source: Patient - Social History Smoking Status: Never Smoker Chew tobacco use (# tins/day): No Frequency of alcohol use: None Drug Abuse: None Lives with: Family Family History: Reviewed & Not Pertinent Patient has suicidal ideation: No Patient has homicidal ideation: No - Past Medical History Cardiac Medical History: Reports: Hx Hypercholesterolemia, Hx Hypertension Denies: Hx Atrial Fibrillation, Hx Congestive Heart Failure, Hx Coronary Artery Disease, Hx Heart Attack, Hx Peripheral Vascular Disease, Hx Pulmonary Embolism, Hx Heart Murmur Pulmonary Medical History: Reports: Hx Asthma, Hx Bronchitis, Hx Pneumonia Denies: Hx COPD, Hx Respiratory Failure, Hx Sleep Apnea, Hx Tuberculosis Neurological Medical History: Denies: Hx Cerebrovascular Accident, Hx Seizures Endocrine Medical History: Denies: Hx Diabetes Mellitus Type 1, Hx Diabetes Mellitus Type 2 Renal/ Medical History: Denies: Hx Peritoneal Dialysis Malignancy Medical History: Reports: Hx Breast Cancer. Denies: Hx Lung Cancer GI Medical History: Reports: Hx Gastroesophageal Reflux Disease, Hx Hiatal Hernia. Denies: Hx Crohn's Disease, Hx Hepatitis, Hx Irritable Bowel, Hx Liver Failure, Hx Pancreatitis, Hx Ulcer Musculoskeletal Medical History: Reports Hx Arthritis, Denies Hx Fibromyalgia, Denies Hx Muscular Dystrophy Psychiatric Medical History: Reports: Hx Depression Traumatic Medical History: Reports: Hx Fractures - ankle Infectious Medical History: Denies: Hx Hepatitis Past Surgical History: Reports: Hx Breast Surgery - benign tumors removed 1 in R breast, 3 in Left, Hx Cardiac Catheterization, Hx Cholecystectomy, Hx Hysterectomy, Hx Orthopedic Surgery - right ankle, Hx Tubal Ligation. Denies: Hx Appendectomy, Hx Bowel Surgery, Hx Section, Hx Colostomy, Hx Coronary Artery Bypass Graft, Hx Gastric Bypass Surgery, Hx Herniorrhaphy, Hx Mastectomy, Hx Open Heart Surgery, Hx Pacemaker, Hx Tonsillectomy - Immunizations Hx Diphtheria, Pertussis, Tetanus Vaccination: Yes Hx Pneumococcal Vaccination: 07/23/10 Review of Systems - Review of Systems Notes: Review HPI for review of systems., All other systems negative Physical Exam - Vital signs Vitals: Temp Pulse BP Pulse Ox 97.4 F 69 139/86 H 95 07/21/19 15:00 07/21/19 15:00 07/21/19 15:00 07/21/19 15:00 - General General appearance: Alert, Anxious In distress: Mild - HEENT Head: Normocephalic Eyes: Normal Conjunctiva: Normal Extraocular movements intact: Yes - Respiratory Respiratory status: No respiratory distress Chest status: Nontender Breath sounds: Normal Chest palpation: Normal - Cardiovascular Rhythm: Regular Heart sounds: Normal auscultation Murmur: No - Abdominal Inspection: Normal Distension: No distension Tenderness: Nontender Organomegaly: No organomegaly - Back Back: Normal, Tender - No vertebral tenderness complains of paraspinal tenderness to the left side mid to low back. No: Vertebra tenderness - Extremities General upper extremity: Normal ROM General lower extremity: Normal ROM Hip: Tender - LEFT HIP, Pain with ROM. No: Abrasion, Dislocation, Ecchymosis - Neurological Neuro grossly intact: Yes Cognition: Normal Orientation: AAOx4 Stout Coma Scale Eye Opening: Spontaneous Stout Coma Scale Verbal: Oriented Renny Coma Scale Motor: Obeys Commands Stout Coma Scale Total: 15 Speech: Normal - Psychological Associated symptoms: Normal affect, Normal mood - Skin Skin Temperature: Warm Skin Moisture: Dry Skin Color: Normal Course - Re-evaluation Re-evalutation: 07/21/19 17:35 Hip X-Ray 07/21/19 16:48 IMPRESSION: Normal left hip. Lower lumbar degenerative changes. 07/21/19 17:38 63-year-old female presents after she fell over the parking block at [employer]. Did not hit her head complains of left hip pain low back pain. Has a history of hip pain from arthritis. X-ray was negative. Patient able to ambulate without problems. She was instructed to take Motrin for the pain follow-up with her primary care provider within a week for recheck return for concerns. She verbalized understanding all instructions. 5 - Vital Signs Vital signs: Temp Pulse Resp BP Pulse Ox 97.5 F 71 20 144/90 H 99 07/21/19 17:52 07/21/19 17:52 07/21/19 17:52 07/21/19 17:52 07/21/19 17:52 - Diagnostic Test Radiology reviewed: Image reviewed, Reports reviewed Discharge - Discharge Clinical Impression: Fall Qualifiers: Encounter type: initial encounter Qualified Code(s): W19.XXXA - Unspecified fall, initial encounter Hip pain Qualifiers: Laterality: left Qualified Code(s): M25.552 - Pain in left hip Condition: Stable Disposition: HOME, SELF-CARE Instructions: Use of Kono-Qlz-Affsjnh Ibuprofen ([facility]), Ice Packs ([facility]) Additional Instructions: *You have been evaluated for hip pain *Your hip x-ray was negative for an acute fracture *Take ibuprofen as indicated for pain *Rest/Ice/Elevate *Follow up with her primary care provider within the week *Return to ED for worsening condition, changes, needs Referrals: RASHAAD BOATENG MD [Primary Care Provider] - Follow up in 1 week
--- NOTE | 2019-07-21 17:11 | RADIOLOGY REPORT (SQ) ---
EXAM DESCRIPTION: HIP LEFT AP/LATERAL COMPLETED DATE/TIME: 07/21/2019 4:59 pm REASON FOR STUDY: fall pain COMPARISON: 07/09/2017 NUMBER OF VIEWS: Two views. TECHNIQUE: AP pelvis and additional frog-leg view of the left hip. LIMITATIONS: None. FINDINGS: MINERALIZATION: Normal. LEFT HIP: No fracture or dislocation. No worrisome bone lesions. RIGHT HIP: No fracture or dislocation. No worrisome bone lesions. PUBIS AND ISCHIUM: No fracture. PELVIS: No fracture. SACRUM: No fracture or dislocation. No worrisome bone lesions. LOWER LUMBAR SPINE: Lower lumbar degenerative changes. SOFT TISSUES: No findings. OTHER: No other significant finding. IMPRESSION: Normal left hip. Lower lumbar degenerative changes. TECHNICAL DOCUMENTATION: JOB ID: [id number] [employer]- All Rights Reserved Reading location - IP/workstation name: [email or web address]
[2019-07-21 17:54] VITALS: BP 144/90
== END 2019-07-21 17:52 | disposition home or self-care (01) ==
LOC: ER 14:19
DX: M25.552 Pain in left hip (principal); W01.10XA Fall on same level from slipping, tripping and stumbling with subsequent striking against unspecified object, initial encounter; Y92.481 Parking lot as the place of occurrence of the external cause; E78.00 Pure hypercholesterolemia, unspecified; I10 Essential (primary) hypertension; Z88.3 Allergy status to other anti-infective agents; Z88.0 Allergy status to penicillin; Z85.3 Personal history of malignant neoplasm of breast; Z90.49 Acquired absence of other specified parts of digestive tract; Z90.710 Acquired absence of both cervix and uterus; Z98.51 Tubal ligation status
CPT/HCPCS: 99283; 73502; A9270

== ENCOUNTER → 2020-04-16 | Outpatient (CLI) | payer MEDICARE ==
--- NOTE | 2020-04-17 09:16 | RADIOLOGY REPORT (SQ) ---
EXAM DESCRIPTION: CHEST 2 VIEWS IMAGES COMPLETED DATE/TIME: 04/16/2020 5:24 pm REASON FOR STUDY: (R05)COUGH COMPARISON: CTA chest 05/03/2019 Chest films 04/03/2018, 02/11/2016 EXAM PARAMETERS: NUMBER OF VIEWS: two views TECHNIQUE: Digital Frontal and Lateral radiographic views of the chest acquired. RADIATION DOSE: NA LIMITATIONS: none FINDINGS: LUNGS AND PLEURA: No opacities, masses or pneumothorax. No pleural effusion. MEDIASTINUM AND HILAR STRUCTURES: No masses or contour abnormalities. HEART AND VASCULAR STRUCTURES: Heart normal size. No evidence for failure. BONES: No acute findings. HARDWARE: None in the chest. OTHER: No other significant finding. IMPRESSION: NO ACUTE RADIOGRAPHIC FINDING IN THE CHEST. TECHNICAL DOCUMENTATION: JOB ID: [id number] 2010 [employer]- All Rights Reserved Reading location - IP/workstation name: [email or web address]
--- NOTE | 2020-04-17 14:00 | RADIOLOGY REPORT (SQ) ---
EXAM DESCRIPTION: PARANASAL SINUSES IMAGES COMPLETED DATE/TIME: 04/16/2020 5:24 pm REASON FOR STUDY: (R05)COUGH R05 COUGH COMPARISON: None. NUMBER OF VIEWS: Three views. TECHNIQUE: Images of the paranasal sinuses acquired. LIMITATIONS: None. FINDINGS: ORBITS: No fracture. No foreign body. SINUSES: No mucosal thickening. No air fluid levels. FACIAL BONES: No fracture. OTHER: Left mastoid air cells are clear. Right mastoid air cells are small and sclerotic. IMPRESSION: No air-fluid levels worrisome for acute sinusitis TECHNICAL DOCUMENTATION: JOB ID: [id number] 2010 [employer]- All Rights Reserved Reading location - IP/workstation name: [email or web address]
== END ==
LOC: RAD 16:53
PROVIDERS: ATTEND Internal Medicine
DX: R05 Cough (principal)
CPT/HCPCS: 70220; 71046

== ENCOUNTER → 2020-04-18 | Outpatient (CLI) | payer MEDICARE ==
--- NOTE | 2020-04-18 14:50 | RADIOLOGY REPORT (SQ) ---
EXAM DESCRIPTION: MRI HEAD WITHOUT IMAGES COMPLETED DATE/TIME: 04/18/2020 2:38 pm REASON FOR STUDY: AMNESIA R41.1 ANTEROGRADE AMNESIA COMPARISON: None. TECHNIQUE: Multiplanar imaging includes non-contrasted T1, T2, FLAIR, and Diffusion with ADC map seq uences. Images stored on PACS. LIMITATIONS: None. FINDINGS: ANATOMY: No anomalies. Normal vascular flow voids. Pituitary fossa normal. CSF SPACES: Normal in size and contour. No hemorrhage. CEREBRUM: A few scattered high-signal intensity lesions scattered throughout the white matter on FLAI R imaging with distribution suggesting chronic micro-vascular ischemic change. Sulci and gyri normal in size and contour. No evidence of hemorrhage, mass or extraaxial fluid collection. POSTERIOR FOSSA: No signal alteration. No hemorrhage. No edema, masses or mass effect. Internal toby tory canals, cerebello-pontine angles, mastoids normal. DIFFUSION: Negative for acute or sub-acute infarction. ORBITS: No masses. Globes normal. PARANASAL SINUSES: No fluid levels. Mucosa normal. OTHER: No other significant finding. IMPRESSION: MINIMAL MICROVASCULAR ISCHEMIC CHANGE. OTHERWISE NORMAL STUDY. EVIDENCE OF ACUTE STROKE: NO. TECHNICAL DOCUMENTATION: JOB ID: [id number] 2010 [employer]- All Rights Reserved Reading location - IP/workstation name: [email or web address]
== END ==
LOC: RAD 14:05
PROVIDERS: ATTEND Internal Medicine
DX: R41.1 Anterograde amnesia (principal)
CPT/HCPCS: 70551

== ENCOUNTER 2020-06-30 22:11 | Inpatient (IN) | payer MEDICARE ==
--- NOTE | 2020-06-30 23:00 | ER Document Report ---
ED Medical Screen (RME) - General Stated Complaint: TROUBLE BREATHING,FEVER,DIARRHEA, VOMITING Time Seen by Provider: 06/30/20 22:55 Primary Care Provider: RASHAAD BOATENG MD [Primary Care Provider] - Follow up as needed TRAVEL OUTSIDE OF THE [place] IN LAST 30 DAYS: No - HPI Notes: Patient is a 64-year-old female with a history of asthma and HTN who presents with shortness of breath and cough for the past week. Patient also reports diarrhea, nausea, and fever. Patient's is also sick with similar symptoms and patient reports that her son and [id number] tested positive for COVID-19 last week. Patient states she has been taking Tylenol with minimal relief. - Related Data Allergies/Adverse Reactions: vancomycin [Vancomycin] Allergy (Severe, Verified 07/21/19 15:02) itching-generalizd Penicillins Allergy (Intermediate, Verified 07/21/19 15:02) Hives Past Medical History - Past Medical History Cardiac Medical History: Reports: Hx Hypercholesterolemia, Hx Hypertension Denies: Hx Atrial Fibrillation, Hx Congestive Heart Failure, Hx Coronary Artery Disease, Hx Heart Attack, Hx Peripheral Vascular Disease, Hx Pulmonary Embolism, Hx Heart Murmur Pulmonary Medical History: Reports: Hx Asthma, Hx Bronchitis, Hx Pneumonia Denies: Hx COPD, Hx Respiratory Failure, Hx Sleep Apnea, Hx Tuberculosis Neurological Medical History: Denies: Hx Cerebrovascular Accident, Hx Seizures Endocrine Medical History: Denies: Hx Diabetes Mellitus Type 1, Hx Diabetes Mellitus Type 2 Renal/ Medical History: Denies: Hx Peritoneal Dialysis Malignancy Medical History: Reports: Hx Breast Cancer. Denies: Hx Lung Cancer GI Medical History: Reports: Hx Gastroesophageal Reflux Disease, Hx Hiatal Hernia. Denies: Hx Crohn's Disease, Hx Hepatitis, Hx Irritable Bowel, Hx Liver Failure, Hx Pancreatitis, Hx Ulcer Musculoskeltal Medical History: Reports Hx Arthritis, Denies Hx Fibromyalgia, Denies Hx Muscular Dystrophy Psychiatric Medical History: Reports: Hx Depression Traumatic Medical History: Reports: Hx Fractures - ankle Infectious Medical History: Denies: Hx Hepatitis Past Surgical History: Reports: Hx Breast Surgery - benign tumors removed 1 in R breast, 3 in Left, Hx Cardiac Catheterization, Hx Cholecystectomy, Hx Hysterectomy, Hx Orthopedic Surgery - right ankle, Hx Tubal Ligation. Denies: Hx Appendectomy, Hx Bowel Surgery, Hx Section, Hx Colostomy, Hx Coronary Artery Bypass Graft, Hx Gastric Bypass Surgery, Hx Herniorrhaphy, Hx Mastectomy, Hx Open Heart Surgery, Hx Pacemaker, Hx Tonsillectomy - Immunizations Hx Diphtheria, Pertussis, Tetanus Vaccination: Yes Physical Exam - Vital signs Vitals: Temp Pulse Resp BP Pulse Ox 97.7 F 106 H 19 119/96 H 97 06/30/20 22:23 06/30/20 22:23 06/30/20 22:23 06/30/20 22:23 06/30/20 22:23 - Respiratory Respiratory status: Labored Breath sounds: Normal, Nonproductive cough Course - Re-evaluation Re-evalutation: I have greeted and performed a rapid initial assessment of this patient. A comprehensive ED assessment and evaluation of the patient, analysis of test results and completion of medical decision making process will be conducted by an additional ED providers. The patient was evaluated during the global COVID-19 pandemic and that diagnosis was suspected/considered upon their initial presentation. Their evaluation, treatment and testing was consistent with current guidelines for patients who present with complaints or symptoms that may be related to COVID-19. - Vital Signs Vital signs: Temp Pulse Resp BP Pulse Ox 97.7 F 106 H 19 119/96 H 97 06/30/20 22:23 06/30/20 22:23 06/30/20 22:23 06/30/20 22:23 06/30/20 22:23 Doctor's Discharge - Discharge Referrals: RASHAAD BOATENG MD [Primary Care Provider] - Follow up as needed
[2020-06-30 23:24] LABS: ABSOLUTE LYMPHOCYTES (AUTO) 0.7 10^3/uL (0.5-4.7); ABSOLUTE MONOCYTES (AUTO) 0.5 10^3/uL (0.1-1.4); ABSOLUTE NEUT (AUTO) 2.8 10^3/uL (1.7-8.2); BASOPHILS % (AUTO) 0.5 % (0-2); EOSINOPHILS % (AUTO) 0.5 % (0-6); HEMATOCRIT 43.9 % (36.0-47.0); HEMOGLOBIN 14.9 g/dL (12.0-15.5); LYMPHOCYTES % (AUTO) 18.1 % (13-45); MEAN CORPUSCULAR HEMOGLOBIN 29.4 pg (27.0-33.4); MEAN CORPUSCULAR VOLUME 87 fl (80-97); MONOCYTES % (AUTO) 11.6 % (3-13); PLATELET COUNT 255 10^3/uL (150-450); RED BLOOD COUNT 5.07 10^6/uL (3.72-5.28); RED CELL DISTRIBUTION WIDTH 13.4 % (11.5-14.0); SEGMENTED NEUTROPHILS % (AUTO) 69.3 % (42-78); TOTAL CELLS COUNTED % (AUTO) 100 %
--- NOTE | 2020-06-30 23:53 | RADIOLOGY REPORT (SQ) ---
CLINICAL HISTORY: shortness of breath and cough COMPARISON: 04/21/2018. TECHNIQUE: XR CHEST 1 VIEW 06/30/2020 10:58 PM PODIATRIST ORTHOPEDIC FINDINGS: Cardiac silhouette is normal in size. There is mild patchy left basilar and right upper lobe airspace disease. There is no pleural effusion. There is no pneumothorax. There are no acute osseous findings. IMPRESSION: Bilateral pneumonia.
[2020-07-01 00:08] LABS: A TYPE INFLUENZA AG NEGATIVE (NEGATIVE); B INFLUENZA AG NEGATIVE (NEGATIVE)
[2020-07-01] MEDS ORDERED: AZITHROMYCIN INJ 500 MG VIAL IV ONE (00:11)
--- NOTE | 2020-07-01 00:14 | ER Document Report ---
ED Respiratory Problem - General Chief Complaint: Flu Symptoms Stated Complaint: TROUBLE BREATHING,FEVER,DIARRHEA, VOMITING Time Seen by Provider: 06/30/20 22:55 Mode of Arrival: Wheelchair Information source: Patient Notes: 64-year-old female past medical history significant for hypertension, asthma, hyperlipidemia presents to the emergency room complaining of shortness of breath with cough and fever of 101 for the past week. Has been taking Tylenol with minimal relief. Last dose earlier this morning. with same symptoms. Positive Covid exposure. States son and daughter in law were both tested positive on June 22. Patient has not been tested since she found out her son and [id number] were both positive. TRAVEL OUTSIDE OF THE [place] IN LAST 30 DAYS: No - Related Data Allergies/Adverse Reactions: vancomycin [Vancomycin] Allergy (Severe, Verified 07/21/19 15:02) itching-generalizd Penicillins Allergy (Intermediate, Verified 07/21/19 15:02) Hives Past Medical History - General Information source: Patient - Social History Smoking Status: Never Smoker Frequency of alcohol use: None Drug Abuse: None Family History: Reviewed & Not Pertinent - Past Medical History Cardiac Medical History: Reports: Hx Hypercholesterolemia, Hx Hypertension Denies: Hx Atrial Fibrillation, Hx Congestive Heart Failure, Hx Coronary Artery Disease, Hx Heart Attack, Hx Peripheral Vascular Disease, Hx Pulmonary Embolism, Hx Heart Murmur Pulmonary Medical History: Reports: Hx Asthma, Hx Bronchitis, Hx Pneumonia Denies: Hx COPD, Hx Respiratory Failure, Hx Sleep Apnea, Hx Tuberculosis Neurological Medical History: Denies: Hx Cerebrovascular Accident, Hx Seizures Endocrine Medical History: Denies: Hx Diabetes Mellitus Type 1, Hx Diabetes Mellitus Type 2 Renal/ Medical History: Denies: Hx Peritoneal Dialysis Malignancy Medical History: Reports: Hx Breast Cancer. Denies: Hx Lung Cancer GI Medical History: Reports: Hx Gastroesophageal Reflux Disease, Hx Hiatal Hernia. Denies: Hx Crohn's Disease, Hx Hepatitis, Hx Irritable Bowel, Hx Liver Failure, Hx Pancreatitis, Hx Ulcer Musculoskeletal Medical History: Reports Hx Arthritis, Denies Hx Fibromyalgia, Denies Hx Muscular Dystrophy Psychiatric Medical History: Reports: Hx Depression Traumatic Medical History: Reports: Hx Fractures - ankle Infectious Medical History: Denies: Hx Hepatitis Past Surgical History: Reports: Hx Breast Surgery - benign tumors removed 1 in R breast, 3 in Left, Hx Cardiac Catheterization, Hx Cholecystectomy, Hx Hysterectomy, Hx Orthopedic Surgery - right ankle, Hx Tubal Ligation. Denies: Hx Appendectomy, Hx Bowel Surgery, Hx Section, Hx Colostomy, Hx Coronary Artery Bypass Graft, Hx Gastric Bypass Surgery, Hx Herniorrhaphy, Hx Mastectomy, Hx Open Heart Surgery, Hx Pacemaker, Hx Tonsillectomy - Immunizations Hx Diphtheria, Pertussis, Tetanus Vaccination: Yes Hx Pneumococcal Vaccination: 07/23/10 Review of Systems - Review of Systems Constitutional: Fever, Malaise EENT: No symptoms reported Cardiovascular: No symptoms reported Respiratory: Cough, Short of breath Gastrointestinal: No symptoms reported Genitourinary: No symptoms reported Musculoskeletal: Muscle pain Skin: No symptoms reported Neurological/Psychological: No symptoms reported -: Yes All other systems reviewed and negative Physical Exam - Vital signs Vitals: Temp Pulse Resp BP Pulse Ox 97.7 F 106 H 19 119/96 H 97 06/30/20 22:23 06/30/20 22:23 06/30/20 22:23 06/30/20 22:23 06/30/20 22:23 - General General appearance: Appears well, Alert In distress: Moderate - HEENT Head: Normocephalic, Atraumatic Eyes: Normal Pupils: PERRL - Respiratory Respiratory status: Retractions, Other - Hypoxic Chest status: Nontender Breath sounds: Nonproductive cough, Rhonchi Chest palpation: Normal - Cardiovascular Rhythm: Tachycardia Heart sounds: Normal auscultation Murmur: No - Neurological Neuro grossly intact: Yes Cognition: Normal Orientation: AAOx4 [place] Coma Scale Eye Opening: Spontaneous [place] Coma Scale Verbal: Oriented [place] Coma Scale Motor: Obeys Commands [place] Coma Scale Total: 15 Speech: Normal Motor strength normal: LUE, RUE, LLE, RLE Sensory: Normal - Skin Skin Temperature: Warm Skin Moisture: Dry Skin Color: Normal Course - Re-evaluation Re-evalutation: 07/01/20 02:10 Patient is resting, remains hypoxic. O2 sats dropped to the 90s when oxygen was removed without any exertion. Decreased wheezing. Reviewed all lab and x-ray results with patient. Aware that he is positive for Covid as well as pneumonia. Patient aware of need for admission. Patient is agreeable to admission. - Vital Signs Vital signs: Temp Pulse Resp BP Pulse Ox 97.8 F 106 H 18 134/74 H 100 06/30/20 23:09 06/30/20 22:23 07/01/20 02:01 07/01/20 02:01 07/01/20 02:01 - Laboratory Results Result Diagrams: 06/30/20 23:12 07/01/20 00:17 Laboratory Results Interpreted: 06/30/20 07/01/20 23:26 00:17 Potassium 3.4 L AST 39 H SARS-CoV-2 (PCR) DETECTED H Critical Laboratory Results Reviewed: Yes - COVID 19 positive Attending or Supervising Physician who Reviewed Labs: MARKO KELLEY - Radiology Results Critical Radiology Results Reviewed: Yes - Bilateral pneumonia, IV antibiotics started Attending or Supervising Physician who Reviewed Radiology: MARKO KELLEY - Start IV antibiotics - EKG Interpretation by Tn EKG shows normal: Sinus rhythm Rate: Normal Additional EKG results interpreted by me: 07/01/20 00:21 EKG was interpreted by ER physician Dr. Winslow No acute STEMI Rate of [address] wave abnormalities No significant change when compared to previous EKG of 04/21/2018 - Consults Dr. Wick Time consulted: 02:12 - Agrees with evaluation, agrees with plan, accepts admission Reason for consultation: 07/01/20 02:12 Discussed all lab findings, x-ray results with Dr. Wick. Patient is COVID-19 positive. Bilateral pneumonia, hypoxic. Consulted provider: will see as inpatient Discharge - Discharge Clinical Impression: COVID-19, Community acquired pneumonia of right upper lobe of lung, Community acquired pneumonia of left lower lobe of lung, Hypoxia Condition: Good Disposition: ADMITTED INPATIENT Admitting Provider: [facility] Admitted: [facility]
[2020-07-01 00:50] LABS: ALBUMIN 3.9 g/dL (3.5-5.0); ALKALINE PHOSPHATASE 99 U/L (38-126); ANION GAP 8 (5-19); ASPARTATE AMINO TRANSFERASE 39 U/L (14-36); BILIRUBIN,DIRECT 0.3 mg/dL (0.0-0.4); BILIRUBIN,TOTAL 0.7 mg/dL (0.2-1.3); BLOOD UREA NITROGEN 9 mg/dL (7-20); CALCIUM 8.8 mg/dL (8.4-10.2); CARBON DIOXIDE 30 mmol/L (22-30); CHLORIDE 103 mmol/L (98-107); GLUCOSE 95 mg/dL (75-110); POTASSIUM 3.4 mmol/L (3.6-5.0); TOTAL PROTEIN 7.4 g/dL (6.3-8.2)
[2020-07-01 01:04] LABS: VENOUS BLOOD BASE EXCESS 2.4 mmol/L; VENOUS BLOOD HCO3 28.6 mmol/L (20-32); VENOUS BLOOD PCO2 50.2 mmHg (35-63); VENOUS BLOOD PH 7.37 (7.30-7.42)
[2020-07-01] MEDS ORDERED: ACETAMINOPHEN 325 MG TABLET PO ONE (01:49)
[2020-07-01] MEDS ORDERED: GUAIFENESIN SYRP 200 MG/10 ML UDC PO ONE (01:49)
[2020-07-01] MEDS: ACETAMINOPHEN 325 MG TABLET PO PRN (09:07)
[2020-07-01] MEDS: ENOXAPARIN SODIUM INJ 40 MG/0.4 ML DISP.SYRIN SUBCUT SCH (09:12)
[2020-07-01] MEDS: DEXAMETHASONE SOD PHOS INJ 10 MG/1 ML VIAL IV SCH (09:12)
[2020-07-01] MEDS: CHOLECALCIFEROL (D3) 1,000 UNIT (25 MCG) TABLET PO SCH (09:13)
[2020-07-01] MEDS: AZITHROMYCIN 250 MG TABLET PO SCH (09:13)
[2020-07-01] MEDS: ASPIRIN 81 MG TABLET, ENT COATED PO SCH (09:13)
[2020-07-01] MEDS: FAMOTIDINE 20 MG TABLET PO SCH ×2 (09:13→21:02)
[2020-07-01] MEDS: ZINC SULFATE 220 MG CAPSULE PO SCH (09:13)
[2020-07-01] MEDS: ASCORBIC ACID 500 MG TABLET PO SCH ×2 (09:13→17:23)
[2020-07-01] MEDS ORDERED: ONDANSETRON HCL INJ/PF 4 MG/2 ML SDV ONE (10:27)
[2020-07-01] MEDS ORDERED: ONDANSETRON HCL INJ/PF 4 MG/2 ML SDV IV ONE (10:45)
--- NOTE | 2020-07-01 10:45 | PDOC H&P ---
History of Present Illness Admission Date/PCP: 07/01/20 02:18 RASHAAD BOATENG MD Patient complains of: Flulike symptoms History of Present Illness: JARAD MENDOZA is a 64 year old female Is a 64-year-old male with a significant history of the hypertensions asthma hyperlipidemia came to the emergency department with a complaint of shortness of the breath with cough and a fever 101 for the past week Patient is taking Tylenol with minimal relief patient have the same symptoms Patient's exposed to the positive Covid stated son and [id number] were both tested positive in June 22 With not tested since in the emergency department patients require a nasal cannula oxygen patient's test is positive for Covid Patient oxygenation was is dropped to up to 90% Patient's chest x-ray is suggestive of pneumonia in the left lower lobe When I saw the patient on the floor patient is alert awake still currently short of breath Denied any chest pain Past Medical History Cardiac Medical History: Reports: Hyperlipidema, Hypertension Denies: Atrial Fibrillation, Congestive Heart Failure, Coronary Artery Disease, Myocardial Infarction, Peripheral Vascular Disease, Pulmonary Embolism, Heart Murmur Pulmonary Medical History: Reports: Asthma, Bronchitis, Pneumonia Denies: Chronic Obstructive Pulmonary Disease (COPD), Respiratory Failure, Sleep Apnea, Tuberculosis Neurological Medical History: Denies: Seizures Endocrine Medical History: Denies: Diabetes Mellitus Type 1, Diabetes Mellitus Type 2 Malignancy Medical History: Reports: Breast Cancer Denies: Lung Cancer GI Medical History: Reports: Gastroesophageal Reflux Disease, Hiatal Hernia Denies: Crohn's Disease, Hepatitis Musculoskeltal Medical History: Reports: Arthritis Denies: Fibromyalgia Psychiatric Medical History: Reports: Depression Hematology: Reports: Anemia Denies: Sickle Cell Disease Past Surgical History Past Surgical History: Reports: Cardiac Catheterization, Cholecystectomy, Hysterectomy, Orthopedic Surgery - right ankle, Tubal Ligation Denies: Amputation, Appendectomy, Section, Colostomy, Coronary Artery Bypass Graft, Gastric Bypass Surgery, Herniorrhaphy, Mastectomy, Pa martin, Tonsillectomy Social History Information Source: Patient Smoking Status: Never Smoker Electronic Cigarette use?: No Frequency of Alcohol Use: None Hx Recreational Drug Use: No Drugs: None Hx Prescription Drug Abuse: No Family History Family History: Reviewed & Not Pertinent Parental Family History Reviewed: Yes Children Family History Reviewed: Yes Sibling(s) Family History Reviewed.: Yes Medication/Allergy Home Medications: Gabapentin [Neurontin 300 mg Capsule] 300 mg PO TID 05/27/11 Metoprolol Succinate [Toprol Xl 25 mg Tab.sr] 25 mg PO DAILY 05/27/11 Montelukast Sodium [Singulair] 10 mg PO DAILY 05/27/11 Omeprazole [Prilosec 40 mg Capsule] 20 mg PO BID 05/27/11 Paroxetine HCl [Paxil] 20 mg PO DAILY 05/27/11 Trazodone HCl [Desyrel 50 mg Tablet] 50 mg PO DAILY 04/06/12 Acetaminophen 500 mg PO PRN PRN 04/20/19 Albuterol Sulfate [Ventolin Hfa 8 gm Mdi (1 Mdi/ER Disp)] 2 puff IH PRN PRN 04/20/19 Atorvastatin Calcium [Lipitor 20 mg Tablet] 20 mg PO QHS 04/20/19 Budesonide/Formoterol Fumarate [Symbicort Hfa 160-4.5 Mcg Inhaler 6 gm] 2 puff IH Q12 04/20/19 Cetirizine HCl [Zyrtec 10 mg Tablet] 10 mg PO PRN PRN 04/20/19 Cyclobenzaprine HCl 5 mg PO PRN PRN 04/20/19 Dicyclomine HCl [Bentyl 20 mg Tablet] 20 mg PO BID 04/20/19 Isosorbide Dinitrate 30 mg PO DAILY 04/20/19 Ranitidine HCl 150 mg PO DAILY 04/20/19 Prednisolone Acetate [Pred Forte] 1 ml OP .ASDIR 05/17/19 Allergies/Adverse Reactions: vancomycin [Vancomycin] Allergy (Severe, Verified 07/21/19 15:02) itching-generalizd Penicillins Allergy (Intermediate, Verified 07/21/19 15:02) Hives Review of Systems Constitutional: PRESENT: fever(s), weakness. ABSENT: chills, headache(s), weight gain, weight loss Eyes: ABSENT: visual disturbances Ears: ABSENT: hearing changes Cardiovascular: ABSENT: chest pain, dyspnea on exertion, edema, orthropnea, palpitations Respiratory: PRESENT: cough, dyspnea. ABSENT: hemoptysis Gastrointestinal: ABSENT: abdominal pain, constipation, diarrhea, hematemesis, hematochezia, nausea, vomiting Genitourinary: ABSENT: dysuria, hematuria Musculoskeletal: ABSENT: joint swelling Integumentary: ABSENT: rash, wounds Neurological: ABSENT: abnormal gait, abnormal speech, confusion, dizziness, focal weakness, syncope Psychiatric: ABSENT: anxiety, depression, homidical ideation, suicidal ideation Endocrine: ABSENT: cold intolerance, heat intolerance, menstrual abnormalities, polydipsia, polyuria Hematologic/Lymphatic: ABSENT: easy bleeding, easy bruising, lymphadenopathy Physical Exam Vital Signs: Temp Pulse Resp BP Pulse Ox 97.3 F 88 20 130/75 H 95 07/01/20 08:26 07/01/20 08:26 07/01/20 08:26 07/01/20 08:26 07/01/20 08:26 Intake & Output 06/30/20 07/01/20 07/02/20 06:59 06:59 06:59 Weight 65.4 kg General appearance: PRESENT: no acute distress, well-developed, well-nourished Head exam: PRESENT: atraumatic, normocephalic Eye exam: PRESENT: conjunctiva pink, EOMI, PERRLA. ABSENT: scleral icterus Ear exam: PRESENT: normal external ear exam Mouth exam: PRESENT: moist, tongue midline Neck exam: PRESENT: full ROM. ABSENT: carotid bruit, JVD, lymphadenopathy, thyromegaly Respiratory exam: PRESENT: decreased breath sounds Cardiovascular exam: PRESENT: RRR. ABSENT: diastolic murmur, rubs, systolic murmur Pulses: PRESENT: normal dorsalis pedis pul, +2 pedal pulses bilateral Vascular exam: PRESENT: normal capillary refill GI/Abdominal exam: PRESENT: normal bowel sounds, soft. ABSENT: distended, guarding, mass, organolmegaly, rebound, tenderness Rectal exam: PRESENT: deferred Neurological exam: PRESENT: alert, awake, oriented to person, oriented to place, oriented to time, oriented to situation, CN II-XII grossly intact. ABSENT: motor sensory deficit Psychiatric exam: PRESENT: appropriate affect, normal mood. ABSENT: homicidal ideation, suicidal ideation Skin exam: PRESENT: dry, intact, warm. ABSENT: cyanosis, rash Results Laboratory Results: 06/30/20 23:12 07/01/20 00:17 06/30/20 06/30/20 06/30/20 23:12 23:12 23:12 WBC 4.0 RBC 5.07 Hgb 14.9 Hct 43.9 MCV 87 MCH 29.4 MCHC 34.0 RDW 13.4 Plt Count 255 Seg Neutrophils % 69.3 VBG pH VBG pCO2 VBG HCO3 VBG Base Excess Sodium Cancelled Potassium Cancelled Chloride Cancelled Carbon Dioxide Cancelled Anion Gap Cancelled BUN Cancelled Creatinine Cancelled Est GFR ( Amer) Cancelled Est GFR (Non-Af Amer) Cancelled Glucose Cancelled Lactic Acid 1.1 Calcium Cancelled Total Bilirubin Cancelled AST Cancelled Alkaline Phosphatase Cancelled Total Protein Cancelled Albumin Cancelled 06/30/20 07/01/20 07/01/20 23:12 00:17 00:17 WBC RBC Hgb Hct MCV MCH MCHC RDW Plt Count Seg Neutrophils % VBG pH Cancelled 7.37 VBG pCO2 Cancelled 50.2 VBG HCO3 Cancelled 28.6 VBG Base Excess Cancelled 2.4 Sodium 141.1 Potassium 3.4 L Chloride 103 Carbon Dioxide 30 Anion Gap 8 BUN 9 Creatinine 0.72 Est GFR ( Amer) > 60 Est GFR (Non-Af Amer) Glucose 95 Lactic Acid Calcium 8.8 Total Bilirubin 0.7 AST 39 H Alkaline Phosphatase 99 Total Protein 7.4 Albumin 3.9 07/01/20 00:17 Troponin I < 0.012 Impressions: Chest X-Ray 06/30/20 22:58 IMPRESSION: Bilateral pneumonia. Assessment & Plan - Diagnosis (1) COVID-19 Is this a current diagnosis for this admission?: Yes Plan: The patient on a Covid protocol with the dexamethasone antiviral drugs antibiotic (2) Hypertension Qualifiers: Hypertension type: essential hypertension Qualified Code(s): I10 - Essential (primary) hypertension Is this a current diagnosis for this admission?: Yes Plan: This the current medications (3) Hyperlipidemia Qualifiers: Hyperlipidemia type: unspecified Qualified Code(s): E78.5 - Hyperlipidemia, unspecified Is this a current diagnosis for this admission?: Yes (4) Asthma Qualifiers: Asthma severity: moderate Asthma complication type: unspecified Is this a current diagnosis for this admission?: Yes Plan: Continues to IV steroids nebulizer treatments (5) Community acquired pneumonia of left lower lobe of lung Is this a current diagnosis for this admission?: Yes Plan: Start IV antibiotic (6) Hypoxia Is this a current diagnosis for this admission?: Yes Plan: Supplement oxygen's we will get the CT angiogram - Time Time Spent: 30 to 50 Minutes Medications reviewed and adjusted accordingly: Yes Anticipated Discharge Disposition: Home, Self Care Anticipated Discharge Timeframe: within 72 hours - Inpatient Certification Based on my medical assessment, after consideration of the patient's comorbidities, presenting symptoms, or acuity I expect that the services needed warrant INPATIENT care.: Yes I certify that my determination is in accordance with my understanding of Medicare's requirements for reasonable and necessary INPATIENT services [42 CFR 412.3e].: Yes Medical Necessity: Significant Comorbidiites Make Outpatient Treatment Too Risky, Need For IV Fluids, Need for Nebulizer Therapy and Monitoring of Response, Need for IV Antibiotics Post Hospital Care: D/C Field Service P[employer] Technician Documentation - Plan Summary Plan Summary: Admit the patient with the Covid protocol see MD orders
--- NOTE | 2020-07-01 13:14 | RADIOLOGY REPORT (SQ) ---
EXAM DESCRIPTION: CTA CHEST IMAGES COMPLETED DATE/TIME: 07/01/2020 10:23 am REASON FOR STUDY: covid pneumonia COMPARISON: 05/03/2019 TECHNIQUE: CT scan of the chest performed using helical scanning technique with dynamic intravenous contrast injection. Images reviewed with lung, soft tissue and bone windows. Reconstructed coronal and sagittal MPR images reviewed. Additional 3 dimensional post-processing performed to develop Maximal Intensity Projection images (AR P). All images stored on PACS. All CT scanners at this facility use dose modulation, iterative reconstruction, and/or weight based d osing when appropriate to reduce radiation dose to as low as reasonably achievable (ALARA). [facility]: Dose Right [facility]: CareDose [facility]: Dose Right [facility]: Teradose 4D [facility]: [employer] CONTRAST TYPE AND DOSE: contrast/concentration: Isovue 350.00 mmol/ml; Total Contrast Delivered: 75. 0 ml; Total Saline Delivered: 43.0 ml Contrast bolus adequate for pulmonary arteries and aorta. RENAL FUNCTION: GFR > 60. RADIATION DOSE: CT Rad equipment meets quality standard of care and radiation dose reduction techniq ues were employed. CTDIvol: 9.9 - 14.3 mGy. DLP: 399 mGy-cm. . LIMITATIONS: None. FINDINGS: LUNGS AND PLEURA: Diffuse patchy parenchymal opacities throughout both lungs. No effusion s. AORTA AND GREAT VESSELS: No aneurysm. Contrast bolus not optimized for the aorta. HEART: No pericardial effusion. No significant coronary artery calcifications. PULMONARY ARTERIES: No emboli visualized in the main pulmonary arteries or the segmental branches. HILAR AND MEDIASTINAL STRUCTURES: No identified masses or abnormal nodes. HARDWARE: None in the chest. UPPER ABDOMEN: No significant findings. Limited exam. THYROID AND OTHER SOFT TISSUES: No masses. No adenopathy. BONES: No acute or significant finding. 3D MIPS: Confirm above findings. OTHER: No other significant finding. IMPRESSION: Extensive pneumonia. Consistent with covid 19. No pulmonary emboli. COMMENT: Quality ID # [id number]: Final reports with documentation of one or more dose reduction techniques (e.g., Automated exposure control, adjustment of the mA and/or kV according to patient size, use of iterative reconstruction technique) TECHNICAL DOCUMENTATION: JOB ID: [id number] 2010 [employer]- All Rights Reserved Reading location - IP/workstation name: [email or web address]
[2020-07-01] MEDS ORDERED: REMDESIVIR 200 MG in NORMAL SALINE 250 ML IV ONE (14:00)
[2020-07-01] MEDS: IPRATROPIUM/ALBUTEROL 0.5-2.5 MG/3 ML AMPUL NEB PRN (20:27)
[2020-07-01] MEDS ORDERED: BUDESONIDE NEB 0.25 MG/2 ML AMPUL NEB ONE (21:00)
[2020-07-01] MEDS ORDERED: METOPROLOL SUCCINATE 25 MG TAB.SR.24H PO ONE (21:00)
[2020-07-01] MEDS: BENZONATATE 100 MG CAPSULE PO SCH (21:02)
[2020-07-01] MEDS: GUAIFENESIN SYRP 200 MG/10 ML UDC PO PRN (21:08)
--- NOTE | 2020-07-01 22:35 | EKG REPORT ---
SEVERITY:- NORMAL ECG - SINUS RHYTHM : Confirmed by: Cody Lu 01-Jul-2020 22:34:18
[2020-07-02] MEDS: ACETAMINOPHEN 325 MG TABLET PO PRN ×2 (01:34→08:48)
[2020-07-02] MEDS: IPRATROPIUM/ALBUTEROL 0.5-2.5 MG/3 ML AMPUL NEB PRN ×2 (02:08→07:47)
[2020-07-02 05:21] LABS: ABSOLUTE LYMPHOCYTES (AUTO) 0.6 10^3/uL (0.5-4.7); ABSOLUTE MONOCYTES (AUTO) 0.5 10^3/uL (0.1-1.4); ABSOLUTE NEUT (AUTO) 3.3 10^3/uL (1.7-8.2); BASOPHILS % (AUTO) 0.2 % (0-2); HEMATOCRIT 38.5 % (36.0-47.0); HEMOGLOBIN 13.2 g/dL (12.0-15.5); LYMPHOCYTES % (AUTO) 12.9 % (13-45); MEAN CORPUSCULAR HEMOGLOBIN 29.7 pg (27.0-33.4); MEAN CORPUSCULAR HGB CONC 34.2 g/dL (32.0-36.0); MEAN CORPUSCULAR VOLUME 87 fl (80-97); PLATELET COUNT 255 10^3/uL (150-450); RED BLOOD COUNT 4.43 10^6/uL (3.72-5.28); RED CELL DISTRIBUTION WIDTH 13.4 % (11.5-14.0); SEGMENTED NEUTROPHILS % (AUTO) 74.9 % (42-78); TOTAL CELLS COUNTED % (AUTO) 100 %; WHITE BLOOD COUNT 4.4 10^3/uL (4.0-10.5)
[2020-07-02] MEDS: BENZONATATE 100 MG CAPSULE PO SCH ×3 (05:36→22:17)
[2020-07-02 05:48] LABS: ALBUMIN 3.4 g/dL (3.5-5.0); ALKALINE PHOSPHATASE 84 U/L (38-126); ANION GAP 9 (5-19); ASPARTATE AMINO TRANSFERASE 34 U/L (14-36); BILIRUBIN,DIRECT 0.3 mg/dL (0.0-0.4); BILIRUBIN,TOTAL 0.7 mg/dL (0.2-1.3); BLOOD UREA NITROGEN 12 mg/dL (7-20); C-REACTIVE PROTEIN 28.3 mg/L (<10.0); CALCIUM 8.7 mg/dL (8.4-10.2); CARBON DIOXIDE 27 mmol/L (22-30); CHLORIDE 103 mmol/L (98-107); GLUCOSE 105 mg/dL (75-110); POTASSIUM 3.6 mmol/L (3.6-5.0); TOTAL PROTEIN 6.5 g/dL (6.3-8.2)
[2020-07-02] MEDS: BUDESONIDE NEB 0.25 MG/2 ML AMPUL NEB SCH ×2 (07:47→20:48)
[2020-07-02] MEDS: REMDESIVIR 100 MG in NORMAL SALINE 250 ML IV SCH (09:12)
[2020-07-02] MEDS: DEXAMETHASONE SOD PHOS INJ 10 MG/1 ML VIAL IV SCH (09:12)
[2020-07-02] MEDS: CHOLECALCIFEROL (D3) 1,000 UNIT (25 MCG) TABLET PO SCH (09:13)
[2020-07-02] MEDS: AZITHROMYCIN 250 MG TABLET PO SCH (09:13)
[2020-07-02] MEDS: METOPROLOL SUCCINATE 25 MG TAB.SR.24H PO SCH (09:13)
[2020-07-02] MEDS: ASCORBIC ACID 500 MG TABLET PO SCH ×2 (09:13→17:12)
[2020-07-02] MEDS: FAMOTIDINE 20 MG TABLET PO SCH ×2 (09:13→22:17)
[2020-07-02] MEDS: ZINC SULFATE 220 MG CAPSULE PO SCH (09:13)
[2020-07-02] MEDS: ASPIRIN 81 MG TABLET, ENT COATED PO SCH (09:13)
[2020-07-02] MEDS: ENOXAPARIN SODIUM INJ 40 MG/0.4 ML DISP.SYRIN SUBCUT SCH (09:14)
--- NOTE | 2020-07-02 20:57 | PDOC PROGRESS REPORT ---
Subjective Date:: 07/02/20 Subjective:: Patient was admitted over the weekend, she had CT angiogram of the chest done, i t demonstrated diffuse patchy parenchymal opacities throughout both lung, she has Covid pneumonia Reason For Visit: COVID Physical Exam Vital Signs: Temp Pulse Resp BP Pulse Ox 98.7 F 75 16 130/72 H 95 07/02/20 18:09 07/02/20 18:09 07/02/20 18:09 07/02/20 18:09 07/02/20 18:09 Intake & Output 07/01/20 07/02/20 07/03/20 06:59 06:59 06:59 Intake Total 720 250 Output Total 400 Balance 320 250 Weight 65.4 kg 65.4 kg General appearance: PRESENT: mild distress Eye exam: PRESENT: PERRLA Respiratory exam: PRESENT: rhonchi Cardiovascular exam: PRESENT: +S1, +S2 GI/Abdominal exam: PRESENT: soft Neurological exam: PRESENT: alert Results Laboratory Results: 07/02/20 04:27 07/02/20 04:27 07/02/20 07/02/20 04:27 04:27 WBC 4.4 RBC 4.43 Hgb 13.2 Hct 38.5 MCV 87 MCH 29.7 MCHC 34.2 RDW 13.4 Plt Count 255 Seg Neutrophils % 74.9 Sodium 139.0 Potassium 3.6 Chloride 103 Carbon Dioxide 27 Anion Gap 9 BUN 12 Creatinine 0.61 Est GFR ( Amer) > 60 Glucose 105 Calcium 8.7 Ferritin 65.50 Total Bilirubin 0.7 AST 34 Alkaline Phosphatase 84 C-Reactive Protein 28.3 H Total Protein 6.5 Albumin 3.4 L 07/01/20 00:17 Troponin I < 0.012 Impressions: Chest X-Ray 06/30/20 22:58 IMPRESSION: Bilateral pneumonia. Chest/Abdomen CTA 07/01/20 00:00 IMPRESSION: Extensive pneumonia. Consistent with covid 19. No pulmonary emboli. Assessment & Plan - Diagnosis (1) Pneumonia due to COVID-19 virus Is this a current diagnosis for this admission?: Yes Plan: Patient already on IV remdesivir, dexamethasone (2) Pneumonia Qualifiers: Pneumonia type: due to unspecified organism Laterality: bilateral Lung location: unspecified part of lung Qualified Code(s): J18.9 - Pneumonia, unspecified organism Is this a current diagnosis for this admission?: Yes Plan: I cannot completely rule out bacterial pneumonia, start antibiotic - Time Time Spent with patient: 35 or more minutes Level of Care: IMCU Medications reviewed and adjusted accordingly: Yes Anticipated discharge: Home Anticipated DC Timeframe: Other - Inpatient Certification Based on my medical assessment, after consideration of the patient's comorbidities, presenting symptoms, or acuity I expect that the services needed warrant INPATIENT care.: Yes I certify that my determination is in accordance with my understanding of Medica re's requirements for reasonable and necessary INPATIENT services [42 CFR 412.3e].: Yes
[2020-07-02] MEDS: AZTREONAM 1 GM in DEXTROSE 5%-WATER 50 ML IV SCH (22:17)
[2020-07-02] MEDS: AZITHROMYCIN 500 MG in DEXTROSE 5%-WATER 250 ML IV SCH (23:12)
[2020-07-02] MEDS: GUAIFENESIN SYRP 200 MG/10 ML UDC PO PRN (23:24)
[2020-07-03] MEDS: ACETAMINOPHEN 325 MG TABLET PO PRN ×2 (00:29→10:34)
[2020-07-03 05:37] LABS: ABSOLUTE BASOPHILS # (AUTO) 0.1 10^3/uL (0.0-0.2); ABSOLUTE LYMPHOCYTES (AUTO) 0.6 10^3/uL (0.5-4.7); ABSOLUTE MONOCYTES (AUTO) 0.7 10^3/uL (0.1-1.4); ABSOLUTE NEUT (AUTO) 5.5 10^3/uL (1.7-8.2); BASOPHILS % (AUTO) 0.7 % (0-2); LYMPHOCYTES % (AUTO) 9.1 % (13-45); MEAN CORPUSCULAR HEMOGLOBIN 29.4 pg (27.0-33.4); MEAN CORPUSCULAR HGB CONC 34.2 g/dL (32.0-36.0); MEAN CORPUSCULAR VOLUME 86 fl (80-97); MONOCYTES % (AUTO) 10.5 % (3-13); PLATELET COUNT 249 10^3/uL (150-450); RED BLOOD COUNT 4.41 10^6/uL (3.72-5.28); RED CELL DISTRIBUTION WIDTH 13.3 % (11.5-14.0); SEGMENTED NEUTROPHILS % (AUTO) 79.7 % (42-78); TOTAL CELLS COUNTED % (AUTO) 100 %
[2020-07-03 06:01] LABS: ALBUMIN 3.2 g/dL (3.5-5.0); ALKALINE PHOSPHATASE 83 U/L (38-126); ANION GAP 7 (5-19); ASPARTATE AMINO TRANSFERASE 25 U/L (14-36); BILIRUBIN,DIRECT 0.2 mg/dL (0.0-0.4); BILIRUBIN,TOTAL 0.7 mg/dL (0.2-1.3); BLOOD UREA NITROGEN 17 mg/dL (7-20); C-REACTIVE PROTEIN 11.8 mg/L (<10.0); CALCIUM 8.9 mg/dL (8.4-10.2); CARBON DIOXIDE 29 mmol/L (22-30); CHLORIDE 103 mmol/L (98-107); GLUCOSE 105 mg/dL (75-110); POTASSIUM 3.7 mmol/L (3.6-5.0); TOTAL PROTEIN 6.1 g/dL (6.3-8.2)
[2020-07-03] MEDS: BENZONATATE 100 MG CAPSULE PO SCH ×3 (06:26→21:31)
[2020-07-03] MEDS: AZTREONAM 1 GM in DEXTROSE 5%-WATER 50 ML IV SCH ×3 (06:26→23:47)
[2020-07-03] MEDS: BUDESONIDE NEB 0.25 MG/2 ML AMPUL NEB SCH ×2 (08:22→19:37)
[2020-07-03] MEDS: DEXAMETHASONE SOD PHOS INJ 10 MG/1 ML VIAL IV SCH (10:31)
[2020-07-03] MEDS: REMDESIVIR 100 MG in NORMAL SALINE 250 ML IV SCH (10:31)
[2020-07-03] MEDS: ASCORBIC ACID 500 MG TABLET PO SCH ×2 (10:32→18:26)
[2020-07-03] MEDS: CHOLECALCIFEROL (D3) 1,000 UNIT (25 MCG) TABLET PO SCH (10:32)
[2020-07-03] MEDS: FAMOTIDINE 20 MG TABLET PO SCH ×2 (10:32→21:31)
[2020-07-03] MEDS: ZINC SULFATE 220 MG CAPSULE PO SCH (10:32)
[2020-07-03] MEDS: ENOXAPARIN SODIUM INJ 40 MG/0.4 ML DISP.SYRIN SUBCUT SCH (10:32)
[2020-07-03] MEDS: METOPROLOL SUCCINATE 25 MG TAB.SR.24H PO SCH (10:32)
[2020-07-03] MEDS: ASPIRIN 81 MG TABLET, ENT COATED PO SCH (10:32)
[2020-07-03] MEDS ORDERED: OMEPRAZOLE 40 MG PO SCH (12:30)
[2020-07-03] MEDS ORDERED: PAROXETINE HCL 10 MG PO SCH (12:30)
--- NOTE | 2020-07-03 13:30 | RADIOLOGY REPORT (SQ) ---
EXAM DESCRIPTION: CHEST SINGLE VIEW IMAGES COMPLETED DATE/TIME: 07/03/2020 12:50 pm REASON FOR STUDY: pneumonia COMPARISON: 06/30/2020 EXAM PARAMETERS: NUMBER OF VIEWS: One view. TECHNIQUE: Single frontal radiographic view of the chest acquired. RADIATION DOSE: NA LIMITATIONS: None. FINDINGS: LUNGS AND PLEURA: Improved inspiratory volume, persistent lingular and right upper lobe ai rspace opacities. No pleural effusion. No pneumothorax. MEDIASTINUM AND HILAR STRUCTURES: No masses. Contour normal. HEART AND VASCULAR STRUCTURES: Heart normal in size. Normal vasculature. BONES: No acute findings. HARDWARE: None in the chest. OTHER: No other significant finding. IMPRESSION: Slightly improved aeration demonstrating persistent lingular and right upper lobe airspa ce opacities. TECHNICAL DOCUMENTATION: JOB ID: [id number] [employer]- All Rights Reserved Reading location - IP/workstation name: [email or web address]
[2020-07-03] MEDS: ATORVASTATIN CALCIUM 20 MG TABLET PO SCH (14:01)
[2020-07-03] MEDS: PAROXETINE HCL 20 MG TABLET PO SCH ×2 (14:02→21:31)
[2020-07-03] MEDS: PANTOPRAZOLE SODIUM 20 MG TABLET.DR PO SCH ×2 (14:02→18:26)
[2020-07-03] MEDS: METOPROLOL TARTRATE 25 MG TABLET PO SCH ×2 (15:59→21:30)
[2020-07-03] MEDS: GUAIFENESIN SYRP 200 MG/10 ML UDC PO PRN (18:20)
[2020-07-03] MEDS: TRAZODONE HCL 50 MG TABLET PO SCH (21:31)
--- NOTE | 2020-07-03 21:44 | PDOC PROGRESS REPORT ---
Subjective Date:: 07/03/20 Subjective:: Patient seen by the bedside, she was admitted for Covid pneumonia she has less w heeze today Reason For Visit: COVID Physical Exam Vital Signs: Temp Pulse Resp BP Pulse Ox 98.2 F 58 L 17 115/59 L 95 07/03/20 20:12 07/03/20 20:12 07/03/20 20:12 07/03/20 20:12 07/03/20 20:12 Intake & Output 07/02/20 07/03/20 07/04/20 06:59 06:59 06:59 Intake Total 720 500 600 Output Total 400 300 Balance 320 500 300 Weight 65.4 kg 67.9 kg General appearance: PRESENT: no acute distress Eye exam: PRESENT: PERRLA Respiratory exam: PRESENT: rhonchi Cardiovascular exam: PRESENT: +S1, +S2 GI/Abdominal exam: PRESENT: soft Neurological exam: PRESENT: alert Results Laboratory Results: 07/03/20 04:33 07/03/20 04:33 07/03/20 07/03/20 04:33 04:33 WBC 7.0 RBC 4.41 Hgb 13.0 Hct 38.0 MCV 86 MCH 29.4 MCHC 34.2 RDW 13.3 Plt Count 249 Seg Neutrophils % 79.7 H Sodium 139.1 Potassium 3.7 Chloride 103 Carbon Dioxide 29 Anion Gap 7 BUN 17 Creatinine 0.67 Est GFR ( Amer) > 60 Glucose 105 Calcium 8.9 Ferritin 70.70 Total Bilirubin 0.7 AST 25 Alkaline Phosphatase 83 C-Reactive Protein 11.8 H Total Protein 6.1 L Albumin 3.2 L 07/01/20 00:17 Troponin I < 0.012 Impressions: Chest/Abdomen CTA 07/01/20 00:00 IMPRESSION: Extensive pneumonia. Consistent with covid 19. No pulmonary emboli. Chest X-Ray 07/03/20 00:00 IMPRESSION: Slightly improved aeration demonstrating persistent lingular and right upper lobe airspace opacities. Assessment & Plan - Diagnosis (1) Pneumonia due to COVID-19 virus Is this a current diagnosis for this admission?: Yes Plan: Continue IV remdesivir, dexamethasone (2) Pneumonia Qualifiers: Pneumonia type: due to unspecified organism Laterality: bilateral Lung location: unspecified part of lung Qualified Code(s): J18.9 - Pneumonia, unspecified organism Is this a current diagnosis for this admission?: Yes Plan: Continue IV antibiotic - Time Time Spent with patient: 35 or more minutes Level of Care: IMCU Medications reviewed and adjusted accordingly: Yes Anticipated discharge: Home - Inpatient Certification Based on my medical assessment, after consideration of the patient's comorbidities, presenting symptoms, or acuity I expect that the services needed warrant INPATIENT care.: Yes I certify that my determination is in accordance with my understanding of Medic are's requirements for reasonable and necessary INPATIENT services [42 CFR 412.3e].: Yes
[2020-07-04] MEDS: AZITHROMYCIN 500 MG in DEXTROSE 5%-WATER 250 ML IV SCH (00:33)
[2020-07-04] MEDS ORDERED: AZTREONAM INJ 1 GM VIAL ONE (04:10)
[2020-07-04 04:57] LABS: ABSOLUTE LYMPHOCYTES (AUTO) 0.6 10^3/uL (0.5-4.7); ABSOLUTE MONOCYTES (AUTO) 0.7 10^3/uL (0.1-1.4); ABSOLUTE NEUT (AUTO) 5.1 10^3/uL (1.7-8.2); BASOPHILS % (AUTO) 0.2 % (0-2); HEMATOCRIT 37.4 % (36.0-47.0); HEMOGLOBIN 12.7 g/dL (12.0-15.5); LYMPHOCYTES % (AUTO) 9.2 % (13-45); MEAN CORPUSCULAR HEMOGLOBIN 29.3 pg (27.0-33.4); MEAN CORPUSCULAR VOLUME 86 fl (80-97); MONOCYTES % (AUTO) 11.6 % (3-13); PLATELET COUNT 254 10^3/uL (150-450); RED BLOOD COUNT 4.33 10^6/uL (3.72-5.28); RED CELL DISTRIBUTION WIDTH 13.3 % (11.5-14.0); TOTAL CELLS COUNTED % (AUTO) 100 %; WHITE BLOOD COUNT 6.5 10^3/uL (4.0-10.5)
[2020-07-04 05:32] LABS: ALBUMIN 3.1 g/dL (3.5-5.0); ALKALINE PHOSPHATASE 75 U/L (38-126); ANION GAP 7 (5-19); ASPARTATE AMINO TRANSFERASE 24 U/L (14-36); BILIRUBIN,DIRECT 0.2 mg/dL (0.0-0.4); BILIRUBIN,TOTAL 0.5 mg/dL (0.2-1.3); BLOOD UREA NITROGEN 14 mg/dL (7-20); C-REACTIVE PROTEIN 7.3 mg/L (<10.0); CALCIUM 8.8 mg/dL (8.4-10.2); CARBON DIOXIDE 30 mmol/L (22-30); CHLORIDE 103 mmol/L (98-107); GLUCOSE 125 mg/dL (75-110); POTASSIUM 3.5 mmol/L (3.6-5.0); TOTAL PROTEIN 5.9 g/dL (6.3-8.2)
[2020-07-04] MEDS: AZTREONAM 1 GM in DEXTROSE 5%-WATER 50 ML IV SCH ×3 (05:34→21:17)
[2020-07-04] MEDS: BENZONATATE 100 MG CAPSULE PO SCH ×3 (05:55→21:15)
[2020-07-04] MEDS: DEXAMETHASONE SOD PHOS INJ 10 MG/1 ML VIAL IV SCH (09:35)
[2020-07-04] MEDS: ASCORBIC ACID 500 MG TABLET PO SCH ×2 (09:38→17:23)
[2020-07-04] MEDS: PANTOPRAZOLE SODIUM 20 MG TABLET.DR PO SCH ×2 (09:38→17:23)
[2020-07-04] MEDS: FAMOTIDINE 20 MG TABLET PO SCH ×2 (09:38→21:15)
[2020-07-04] MEDS: ZINC SULFATE 220 MG CAPSULE PO SCH (09:38)
[2020-07-04] MEDS: PAROXETINE HCL 20 MG TABLET PO SCH ×2 (09:39→21:15)
[2020-07-04] MEDS: ASPIRIN 81 MG TABLET, ENT COATED PO SCH (09:39)
[2020-07-04] MEDS: ENOXAPARIN SODIUM INJ 40 MG/0.4 ML DISP.SYRIN SUBCUT SCH (09:40)
[2020-07-04] MEDS: ATORVASTATIN CALCIUM 20 MG TABLET PO SCH (09:40)
[2020-07-04] MEDS: CHOLECALCIFEROL (D3) 1,000 UNIT (25 MCG) TABLET PO SCH (09:40)
[2020-07-04] MEDS: METOPROLOL SUCCINATE 25 MG TAB.SR.24H PO SCH (09:41)
[2020-07-04] MEDS: METOPROLOL TARTRATE 25 MG TABLET PO SCH ×2 (10:00→23:00)
[2020-07-04] MEDS: REMDESIVIR 100 MG in NORMAL SALINE 250 ML IV SCH (10:33)
[2020-07-04] MEDS: IPRATROPIUM/ALBUTEROL 0.5-2.5 MG/3 ML AMPUL NEB PRN (12:11)
[2020-07-04] MEDS: BUDESONIDE NEB 0.25 MG/2 ML AMPUL NEB SCH ×2 (12:13→20:28)
--- NOTE | 2020-07-04 15:36 | PDOC PROGRESS REPORT ---
Subjective Date:: 07/04/20 Subjective:: Patient seen by the bedside, she was admitted for Covid pneumonia she has less w heeze today Reason For Visit: COVID Physical Exam Vital Signs: Temp Pulse Resp BP Pulse Ox 97.3 F 78 16 123/71 93 07/04/20 11:56 07/04/20 14:00 07/04/20 12:16 07/04/20 11:56 07/04/20 12:16 Intake & Output 07/03/20 07/04/20 07/05/20 06:59 06:59 06:59 Intake Total 500 1460 Output Total 300 Balance 500 1160 Weight 67.9 kg 66.3 kg General appearance: PRESENT: no acute distress Eye exam: PRESENT: PERRLA Respiratory exam: PRESENT: wheezes Cardiovascular exam: PRESENT: +S1, +S2 GI/Abdominal exam: PRESENT: soft Neurological exam: PRESENT: alert, CN II-XII grossly intact Results Laboratory Results: 07/04/20 04:16 07/04/20 04:16 07/04/20 07/04/20 04:16 04:16 WBC 6.5 RBC 4.33 Hgb 12.7 Hct 37.4 MCV 86 MCH 29.3 MCHC 34.0 RDW 13.3 Plt Count 254 Seg Neutrophils % 79.0 H Sodium 139.7 Potassium 3.5 L Chloride 103 Carbon Dioxide 30 Anion Gap 7 BUN 14 Creatinine 0.64 Est GFR ( Amer) > 60 Glucose 125 H Calcium 8.8 Ferritin 112.00 Total Bilirubin 0.5 AST 24 Alkaline Phosphatase 75 C-Reactive Protein 7.3 Total Protein 5.9 L Albumin 3.1 L 07/01/20 00:17 Troponin I < 0.012 Impressions: Chest/Abdomen CTA 07/01/20 00:00 IMPRESSION: Extensive pneumonia. Consistent with covid 19. No pulmonary emboli. Chest X-Ray 07/03/20 00:00 IMPRESSION: Slightly improved aeration demonstrating persistent lingular and right upper lobe airspace opacities. Assessment & Plan - Diagnosis (1) Pneumonia due to COVID-19 virus Is this a current diagnosis for this admission?: Yes Plan: Continue IV remdesivir, dexamethasone (2) Pneumonia Qualifiers: Pneumonia type: due to unspecified organism Laterality: bilateral Lung location: unspecified part of lung Qualified Code(s): J18.9 - Pneumonia, unspecified organism Is this a current diagnosis for this admission?: Yes Plan: Continue IV antibiotic - Time Time Spent with patient: 35 or more minutes Level of Care: IMCU Medications reviewed and adjusted accordingly: Yes Anticipated discharge: Home Anticipated DC Timeframe: Other
[2020-07-04] MEDS: TRAZODONE HCL 50 MG TABLET PO SCH (21:15)
[2020-07-05 05:12] LABS: ABSOLUTE LYMPHOCYTES (AUTO) 0.7 10^3/uL (0.5-4.7); BASOPHILS % (AUTO) 0.2 % (0-2); HEMATOCRIT 38.6 % (36.0-47.0); HEMOGLOBIN 13.3 g/dL (12.0-15.5); LYMPHOCYTES % (AUTO) 8.6 % (13-45); MEAN CORPUSCULAR HEMOGLOBIN 29.9 pg (27.0-33.4); MEAN CORPUSCULAR HGB CONC 34.5 g/dL (32.0-36.0); MEAN CORPUSCULAR VOLUME 87 fl (80-97); MONOCYTES % (AUTO) 12.9 % (3-13); PLATELET COUNT 257 10^3/uL (150-450); RED BLOOD COUNT 4.45 10^6/uL (3.72-5.28); RED CELL DISTRIBUTION WIDTH 13.3 % (11.5-14.0); SEGMENTED NEUTROPHILS % (AUTO) 78.3 % (42-78); TOTAL CELLS COUNTED % (AUTO) 100 %; WHITE BLOOD COUNT 7.7 10^3/uL (4.0-10.5)
[2020-07-05] MEDS: BENZONATATE 100 MG CAPSULE PO SCH ×3 (05:29→21:05)
[2020-07-05] MEDS: AZTREONAM 1 GM in DEXTROSE 5%-WATER 50 ML IV SCH ×3 (05:29→21:05)
[2020-07-05 05:35] LABS: ALKALINE PHOSPHATASE 76 U/L (38-126); ANION GAP 7 (5-19); ASPARTATE AMINO TRANSFERASE 23 U/L (14-36); BILIRUBIN,DIRECT 0.2 mg/dL (0.0-0.4); BILIRUBIN,TOTAL 0.5 mg/dL (0.2-1.3); BLOOD UREA NITROGEN 16 mg/dL (7-20); CALCIUM 8.8 mg/dL (8.4-10.2); CARBON DIOXIDE 29 mmol/L (22-30); CHLORIDE 105 mmol/L (98-107); GLUCOSE 155 mg/dL (75-110); POTASSIUM 3.6 mmol/L (3.6-5.0); TOTAL PROTEIN 5.9 g/dL (6.3-8.2)
[2020-07-05 05:37] LABS: C-REACTIVE PROTEIN < 5.0 mg/L (<10.0)
[2020-07-05] MEDS: BUDESONIDE NEB 0.25 MG/2 ML AMPUL NEB SCH ×2 (08:07→19:52)
[2020-07-05] MEDS: METOPROLOL SUCCINATE 25 MG TAB.SR.24H PO SCH (09:16)
[2020-07-05] MEDS: ENOXAPARIN SODIUM INJ 40 MG/0.4 ML DISP.SYRIN SUBCUT SCH (09:18)
[2020-07-05] MEDS: DEXAMETHASONE SOD PHOS INJ 10 MG/1 ML VIAL IV SCH (09:18)
[2020-07-05] MEDS: ASCORBIC ACID 500 MG TABLET PO SCH ×2 (09:18→17:36)
[2020-07-05] MEDS: ZINC SULFATE 220 MG CAPSULE PO SCH (09:18)
[2020-07-05] MEDS: CHOLECALCIFEROL (D3) 1,000 UNIT (25 MCG) TABLET PO SCH (09:19)
[2020-07-05] MEDS: PAROXETINE HCL 20 MG TABLET PO SCH ×2 (09:19→21:05)
[2020-07-05] MEDS: METOPROLOL TARTRATE 25 MG TABLET PO SCH ×2 (09:19→21:06)
[2020-07-05] MEDS: ATORVASTATIN CALCIUM 20 MG TABLET PO SCH (09:19)
[2020-07-05] MEDS: ASPIRIN 81 MG TABLET, ENT COATED PO SCH (09:19)
[2020-07-05] MEDS: FAMOTIDINE 20 MG TABLET PO SCH ×2 (09:19→21:05)
[2020-07-05] MEDS: PANTOPRAZOLE SODIUM 20 MG TABLET.DR PO SCH ×2 (09:19→17:35)
[2020-07-05] MEDS: REMDESIVIR 100 MG in NORMAL SALINE 250 ML IV SCH (10:49)
--- NOTE | 2020-07-05 20:08 | PDOC PROGRESS REPORT ---
Subjective Date:: 07/05/20 Subjective:: Patient seen by the bedside, she continues to require oxygen Reason For Visit: COVID Physical Exam Vital Signs: Temp Pulse Resp BP Pulse Ox 98.4 F 72 20 127/74 H 97 07/05/20 11:44 07/05/20 19:00 07/05/20 17:50 07/05/20 11:44 07/05/20 17:50 Intake & Output 07/04/20 07/05/20 07/06/20 06:59 06:59 06:59 Intake Total 1460 1460 982 Output Total 300 Balance 1160 1460 982 Weight 66.3 kg 68.1 kg General appearance: PRESENT: no acute distress Eye exam: PRESENT: PERRLA Respiratory exam: PRESENT: rhonchi Cardiovascular exam: PRESENT: +S1, +S2 GI/Abdominal exam: PRESENT: soft Neurological exam: PRESENT: alert Results Laboratory Results: 07/05/20 04:29 07/05/20 04:29 07/05/20 07/05/20 04:29 04:29 WBC 7.7 RBC 4.45 Hgb 13.3 Hct 38.6 MCV 87 MCH 29.9 MCHC 34.5 RDW 13.3 Plt Count 257 Seg Neutrophils % 78.3 H Sodium 140.7 Potassium 3.6 Chloride 105 Carbon Dioxide 29 Anion Gap 7 BUN 16 Creatinine 0.58 Est GFR ( Amer) > 60 Glucose 155 H Calcium 8.8 Ferritin 106.00 Total Bilirubin 0.5 AST 23 Alkaline Phosphatase 76 C-Reactive Protein < 5.0 Total Protein 5.9 L Albumin 3.0 L 07/01/20 00:17 Troponin I < 0.012 Impressions: Chest/Abdomen CTA 07/01/20 00:00 IMPRESSION: Extensive pneumonia. Consistent with covid 19. No pulmonary emboli. Chest X-Ray 07/03/20 00:00 IMPRESSION: Slightly improved aeration demonstrating persistent lingular and right upper lobe airspace opacities. Assessment & Plan - Diagnosis (1) Pneumonia due to COVID-19 virus Is this a current diagnosis for this admission?: Yes Plan: Continue IV remdesivir, dexamethasone (2) Pneumonia Qualifiers: Pneumonia type: due to unspecified organism Laterality: bilateral Lung lo cation: unspecified part of lung Qualified Code(s): J18.9 - Pneumonia, unspecified organism Is this a current diagnosis for this admission?: Yes Plan: Continue IV antibiotic - Time Time Spent with patient: 25-34 minutes Level of Care: IMCU Medications reviewed and adjusted accordingly: Yes Anticipated discharge: Home Anticipated DC Timeframe: Other
[2020-07-05] MEDS: TRAZODONE HCL 50 MG TABLET PO SCH (21:05)
[2020-07-05] MEDS: AZITHROMYCIN 500 MG in DEXTROSE 5%-WATER 250 ML IV SCH ×3 (22:59)
[2020-07-05] MEDS: ACETAMINOPHEN 325 MG TABLET PO PRN (23:11)
[2020-07-06] MEDS: AZTREONAM 1 GM in DEXTROSE 5%-WATER 50 ML IV SCH ×3 (05:20→21:44)
[2020-07-06] MEDS: BENZONATATE 100 MG CAPSULE PO SCH ×3 (05:20→21:47)
[2020-07-06 05:45] LABS: ABSOLUTE BASOPHILS # (AUTO) 0.1 10^3/uL (0.0-0.2); ABSOLUTE LYMPHOCYTES (AUTO) 0.7 10^3/uL (0.5-4.7); ABSOLUTE MONOCYTES (AUTO) 0.9 10^3/uL (0.1-1.4); ABSOLUTE NEUT (AUTO) 5.9 10^3/uL (1.7-8.2); BASOPHILS % (AUTO) 0.9 % (0-2); HEMATOCRIT 38.9 % (36.0-47.0); HEMOGLOBIN 13.4 g/dL (12.0-15.5); LYMPHOCYTES % (AUTO) 8.9 % (13-45); MEAN CORPUSCULAR HEMOGLOBIN 29.8 pg (27.0-33.4); MEAN CORPUSCULAR HGB CONC 34.6 g/dL (32.0-36.0); MEAN CORPUSCULAR VOLUME 86 fl (80-97); MONOCYTES % (AUTO) 12.3 % (3-13); PLATELET COUNT 247 10^3/uL (150-450); RED BLOOD COUNT 4.51 10^6/uL (3.72-5.28); RED CELL DISTRIBUTION WIDTH 13.5 % (11.5-14.0); SEGMENTED NEUTROPHILS % (AUTO) 77.9 % (42-78); TOTAL CELLS COUNTED % (AUTO) 100 %; WHITE BLOOD COUNT 7.6 10^3/uL (4.0-10.5)
[2020-07-06 05:53] LABS: ALBUMIN 3.1 g/dL (3.5-5.0); ALKALINE PHOSPHATASE 74 U/L (38-126); ANION GAP 7 (5-19); ASPARTATE AMINO TRANSFERASE 20 U/L (14-36); BILIRUBIN,DIRECT 0.1 mg/dL (0.0-0.4); BILIRUBIN,TOTAL 0.5 mg/dL (0.2-1.3); BLOOD UREA NITROGEN 17 mg/dL (7-20); CALCIUM 8.8 mg/dL (8.4-10.2); CARBON DIOXIDE 28 mmol/L (22-30); CHLORIDE 105 mmol/L (98-107); GLUCOSE 108 mg/dL (75-110); POTASSIUM 3.7 mmol/L (3.6-5.0); TOTAL PROTEIN 5.9 g/dL (6.3-8.2)
[2020-07-06 07:24] LABS: C-REACTIVE PROTEIN < 5.0 mg/L (<10.0)
[2020-07-06] MEDS: IPRATROPIUM/ALBUTEROL 0.5-2.5 MG/3 ML AMPUL NEB PRN ×3 (08:10→19:47)
[2020-07-06] MEDS: BUDESONIDE NEB 0.25 MG/2 ML AMPUL NEB SCH ×2 (08:10→19:47)
[2020-07-06] MEDS: DEXAMETHASONE SOD PHOS INJ 10 MG/1 ML VIAL IV SCH (09:58)
[2020-07-06] MEDS: ENOXAPARIN SODIUM INJ 40 MG/0.4 ML DISP.SYRIN SUBCUT SCH (10:00)
[2020-07-06] MEDS: CHOLECALCIFEROL (D3) 1,000 UNIT (25 MCG) TABLET PO SCH (10:01)
[2020-07-06] MEDS: ATORVASTATIN CALCIUM 20 MG TABLET PO SCH (10:01)
[2020-07-06] MEDS: PAROXETINE HCL 20 MG TABLET PO SCH ×2 (10:01→21:47)
[2020-07-06] MEDS: ASPIRIN 81 MG TABLET, ENT COATED PO SCH (10:01)
[2020-07-06] MEDS: PANTOPRAZOLE SODIUM 20 MG TABLET.DR PO SCH ×2 (10:01→17:01)
[2020-07-06] MEDS: FAMOTIDINE 20 MG TABLET PO SCH ×2 (10:01→21:47)
[2020-07-06] MEDS: ZINC SULFATE 220 MG CAPSULE PO SCH (10:01)
[2020-07-06] MEDS: METOPROLOL TARTRATE 25 MG TABLET PO SCH ×2 (10:01→21:47)
[2020-07-06] MEDS: ASCORBIC ACID 500 MG TABLET PO SCH ×2 (10:01→17:01)
--- NOTE | 2020-07-06 20:57 | PDOC PROGRESS REPORT ---
Subjective Date:: 07/06/20 Subjective:: Patient seen by the bedside, she continues to improve clinically, follow-up ches t x-ray Reason For Visit: COVID Physical Exam Vital Signs: Temp Pulse Resp BP Pulse Ox 97.8 F 65 18 120/59 L 96 07/06/20 19:40 07/06/20 19:47 07/06/20 19:47 07/06/20 19:40 07/06/20 19:47 Intake & Output 07/05/20 07/06/20 07/07/20 06:59 06:59 06:59 Intake Total 1460 1682 1070 Balance 1460 1682 1070 Weight 68.1 kg 65.6 kg General appearance: PRESENT: no acute distress Eye exam: PRESENT: PERRLA Respiratory exam: PRESENT: clear to auscultation [place] Cardiovascular exam: PRESENT: +S1, +S2 GI/Abdominal exam: PRESENT: soft Neurological exam: PRESENT: alert Results Laboratory Results: 07/06/20 04:51 07/06/20 04:51 07/06/20 07/06/20 04:51 04:51 WBC 7.6 RBC 4.51 Hgb 13.4 Hct 38.9 MCV 86 MCH 29.8 MCHC 34.6 RDW 13.5 Plt Count 247 Seg Neutrophils % 77.9 Sodium 139.6 Potassium 3.7 Chloride 105 Carbon Dioxide 28 Anion Gap 7 BUN 17 Creatinine 0.62 Est GFR ( Amer) > 60 Glucose 108 Calcium 8.8 Ferritin 102.00 Total Bilirubin 0.5 AST 20 Alkaline Phosphatase 74 C-Reactive Protein < 5.0 Total Protein 5.9 L Albumin 3.1 L 07/01/20 00:17 Blood Blood Culture - Final NO GROWTH IN 5 DAYS 06/30/20 23:12 Blood Blood Culture - Final NO GROWTH IN 5 DAYS 07/01/20 00:17 Troponin I < 0.012 Impressions: Chest/Abdomen CTA 07/01/20 00:00 IMPRESSION: Extensive pneumonia. Consistent with covid 19. No pulmonary emboli. Chest X-Ray 07/03/20 00:00 IMPRESSION: Slightly improved aeration demonstrating persistent lingular and right upper lobe airspace opacities. Assessment & Plan - Diagnosis (1) Pneumonia due to COVID-19 virus Is this a current diagnosis for this admission?: Yes Plan: Continue IV remdesivir, dexamethasone (2) Pneumonia Qualifiers: Pneumonia type: due to unspecified organism Laterality: bilateral Lung location: unspecified part of lung Qualified Code(s): J18.9 - Pneumonia, unspecified organism Is this a current diagnosis for this admission?: Yes Plan: Continue IV antibiotic - Time Time Spent with patient: 25-34 minutes Level of Care: IMCU Medications reviewed and adjusted accordingly: Yes Anticipated discharge: Home Anticipated DC Timeframe: Other
[2020-07-06] MEDS: AZITHROMYCIN 500 MG in DEXTROSE 5%-WATER 250 ML IV SCH (21:44)
[2020-07-06] MEDS: TRAZODONE HCL 50 MG TABLET PO SCH (21:47)
--- NOTE | 2020-07-06 21:57 | RADIOLOGY REPORT (SQ) ---
CHEST X-RAY 1 VIEW on 07/06/2020 at 9:17 PM CLINICAL INDICATION: Pneumonia COMPARISON: 07/03/2020 FINDINGS: There is mild elevation of the right hemidiaphragm. There has been no significant change in patchy bilateral opacities consistent with pneumonia and differential diagnosis would include viral infections. Cardiac, hilar and mediastinal contours are within normal limits. Vascular calcification is noted in the aorta. IMPRESSION: No significant change in the appearance of the chest.
[2020-07-07] MEDS: GUAIFENESIN SYRP 200 MG/10 ML UDC PO PRN ×2 (04:31→20:29)
[2020-07-07 05:36] LABS: ABSOLUTE LYMPHOCYTES (AUTO) 0.7 10^3/uL (0.5-4.7); ABSOLUTE MONOCYTES (AUTO) 0.9 10^3/uL (0.1-1.4); BASOPHILS % (AUTO) 0.1 % (0-2); HEMATOCRIT 38.2 % (36.0-47.0); HEMOGLOBIN 13.4 g/dL (12.0-15.5); LYMPHOCYTES % (AUTO) 7.9 % (13-45); MEAN CORPUSCULAR VOLUME 86 fl (80-97); MONOCYTES % (AUTO) 10.7 % (3-13); PLATELET COUNT 264 10^3/uL (150-450); RED BLOOD COUNT 4.45 10^6/uL (3.72-5.28); RED CELL DISTRIBUTION WIDTH 13.2 % (11.5-14.0); SEGMENTED NEUTROPHILS % (AUTO) 81.3 % (42-78); TOTAL CELLS COUNTED % (AUTO) 100 %; WHITE BLOOD COUNT 8.6 10^3/uL (4.0-10.5)
[2020-07-07 05:46] LABS: ALKALINE PHOSPHATASE 77 U/L (38-126); ANION GAP 5 (5-19); ASPARTATE AMINO TRANSFERASE 17 U/L (14-36); BILIRUBIN,DIRECT 0.1 mg/dL (0.0-0.4); BILIRUBIN,TOTAL 0.7 mg/dL (0.2-1.3); BLOOD UREA NITROGEN 17 mg/dL (7-20); C-REACTIVE PROTEIN 5.4 mg/L (<10.0); CALCIUM 8.4 mg/dL (8.4-10.2); CARBON DIOXIDE 28 mmol/L (22-30); CHLORIDE 104 mmol/L (98-107); GLUCOSE 101 mg/dL (75-110); POTASSIUM 3.4 mmol/L (3.6-5.0); TOTAL PROTEIN 5.7 g/dL (6.3-8.2)
[2020-07-07] MEDS: AZTREONAM 1 GM in DEXTROSE 5%-WATER 50 ML IV SCH ×3 (06:22→21:26)
[2020-07-07] MEDS: BENZONATATE 100 MG CAPSULE PO SCH ×3 (06:22→21:27)
[2020-07-07] MEDS: IPRATROPIUM/ALBUTEROL 0.5-2.5 MG/3 ML AMPUL NEB PRN (08:52)
[2020-07-07] MEDS: BUDESONIDE NEB 0.25 MG/2 ML AMPUL NEB SCH ×2 (08:52→20:38)
[2020-07-07] MEDS: ASCORBIC ACID 500 MG TABLET PO SCH ×2 (10:10→17:13)
[2020-07-07] MEDS: CHOLECALCIFEROL (D3) 1,000 UNIT (25 MCG) TABLET PO SCH (10:10)
[2020-07-07] MEDS: PAROXETINE HCL 20 MG TABLET PO SCH ×2 (10:10→21:27)
[2020-07-07] MEDS: ZINC SULFATE 220 MG CAPSULE PO SCH (10:10)
[2020-07-07] MEDS: METOPROLOL TARTRATE 25 MG TABLET PO SCH ×2 (10:10→21:27)
[2020-07-07] MEDS: PANTOPRAZOLE SODIUM 20 MG TABLET.DR PO SCH ×2 (10:10→17:13)
[2020-07-07] MEDS: ATORVASTATIN CALCIUM 20 MG TABLET PO SCH (10:10)
[2020-07-07] MEDS: FAMOTIDINE 20 MG TABLET PO SCH ×2 (10:11→21:27)
[2020-07-07] MEDS: ENOXAPARIN SODIUM INJ 40 MG/0.4 ML DISP.SYRIN SUBCUT SCH (10:11)
[2020-07-07] MEDS: DEXAMETHASONE SOD PHOS INJ 10 MG/1 ML VIAL IV SCH (10:11)
[2020-07-07] MEDS: ASPIRIN 81 MG TABLET, ENT COATED PO SCH (10:11)
--- NOTE | 2020-07-07 16:00 | PDOC PROGRESS REPORT ---
Subjective Date:: 07/07/20 Subjective:: Patient seen by the bedside, she continues to improve clinically, follow-up ches t x-ray 07/07/2020 Patient improving clinically the chest x-ray is lagging in terms of improvement, the chest x-ray demonstrated bilateral diffuse infiltrate. Patient has finished IV remdesivir, still on IV dexamethasone Reason For Visit: COVID Physical Exam Vital Signs: Temp Pulse Resp BP Pulse Ox 98.5 F 69 16 138/75 H 100 07/07/20 08:15 07/07/20 14:00 07/07/20 08:52 07/07/20 08:15 07/07/20 08:52 Intake & Output 07/06/20 07/07/20 07/08/20 06:59 06:59 06:59 Intake Total 1682 1830 Output Total 800 Balance 1682 1030 Weight 65.6 kg 65.7 kg 65.7 kg General appearance: PRESENT: no acute distress Eye exam: PRESENT: PERRLA Respiratory exam: PRESENT: clear to auscultation [place] Cardiovascular exam: PRESENT: +S1, +S2 GI/Abdominal exam: PRESENT: soft Neurological exam: PRESENT: alert Results Laboratory Results: 07/07/20 04:35 07/07/20 04:35 07/07/20 07/07/20 04:35 04:35 WBC 8.6 RBC 4.45 Hgb 13.4 Hct 38.2 MCV 86 MCH 30.0 MCHC 35.0 RDW 13.2 Plt Count 264 Seg Neutrophils % 81.3 H Sodium 136.5 L Potassium 3.4 L Chloride 104 Carbon Dioxide 28 Anion Gap 5 BUN 17 Creatinine 0.60 Est GFR ( Amer) > 60 Glucose 101 Calcium 8.4 Ferritin 97.80 Total Bilirubin 0.7 AST 17 Alkaline Phosphatase 77 C-Reactive Protein 5.4 Total Protein 5.7 L Albumin 3.0 L 07/01/20 00:17 Troponin I < 0.012 Impressions: Chest/Abdomen CTA 07/01/20 00:00 IMPRESSION: Extensive pneumonia. Consistent with covid 19. No pulmonary emboli. Chest X-Ray 07/06/20 00:00 IMPRESSION: No significant change in the appearance of the chest. Assessment & Plan - Diagnosis (1) Pneumonia due to COVID-19 virus Is this a current diagnosis for this admission?: Yes Plan: Continue IV dexamethasone (2) Pneumonia Qualifiers: Pneumonia type: due to unspecified organism Laterality: bilateral Lung location: unspecified part of lung Qualified Code(s): J18.9 - Pneumonia, unspecified organism Is this a current diagnosis for this admission?: Yes Plan: Continue IV antibiotic - Time Time Spent with patient: 35 or more minutes Level of Care: IMCU Medications reviewed and adjusted accordingly: Yes Anticipated discharge: Home Anticipated DC Timeframe: within 72 hours
[2020-07-07] MEDS: AZITHROMYCIN 500 MG in DEXTROSE 5%-WATER 250 ML IV SCH (21:26)
[2020-07-07] MEDS: TRAZODONE HCL 50 MG TABLET PO SCH (21:27)
[2020-07-08] MEDS: AZTREONAM 1 GM in DEXTROSE 5%-WATER 50 ML IV SCH ×3 (05:15→21:26)
[2020-07-08] MEDS: BENZONATATE 100 MG CAPSULE PO SCH ×3 (05:15→21:25)
[2020-07-08 06:40] LABS: ABSOLUTE LYMPHOCYTES (AUTO) 0.5 10^3/uL (0.5-4.7); BASOPHILS % (AUTO) 0.2 % (0-2); HEMATOCRIT 37.6 % (36.0-47.0); HEMOGLOBIN 13.1 g/dL (12.0-15.5); LYMPHOCYTES % (AUTO) 6.2 % (13-45); MEAN CORPUSCULAR HGB CONC 34.8 g/dL (32.0-36.0); MEAN CORPUSCULAR VOLUME 86 fl (80-97); MONOCYTES % (AUTO) 12.1 % (3-13); PLATELET COUNT 243 10^3/uL (150-450); RED BLOOD COUNT 4.36 10^6/uL (3.72-5.28); RED CELL DISTRIBUTION WIDTH 13.4 % (11.5-14.0); SEGMENTED NEUTROPHILS % (AUTO) 81.5 % (42-78); TOTAL CELLS COUNTED % (AUTO) 100 %; WHITE BLOOD COUNT 8.6 10^3/uL (4.0-10.5)
[2020-07-08 07:09] LABS: ALBUMIN 2.8 g/dL (3.5-5.0); ALKALINE PHOSPHATASE 66 U/L (38-126); ANION GAP 7 (5-19); ASPARTATE AMINO TRANSFERASE 14 U/L (14-36); BILIRUBIN,DIRECT 0.2 mg/dL (0.0-0.4); BILIRUBIN,TOTAL 0.6 mg/dL (0.2-1.3); BLOOD UREA NITROGEN 17 mg/dL (7-20); CALCIUM 8.5 mg/dL (8.4-10.2); CARBON DIOXIDE 28 mmol/L (22-30); CHLORIDE 104 mmol/L (98-107); GLUCOSE 116 mg/dL (75-110); POTASSIUM 3.6 mmol/L (3.6-5.0); TOTAL PROTEIN 5.5 g/dL (6.3-8.2)
[2020-07-08] MEDS: IPRATROPIUM/ALBUTEROL 0.5-2.5 MG/3 ML AMPUL NEB PRN (07:39)
[2020-07-08] MEDS: BUDESONIDE NEB 0.25 MG/2 ML AMPUL NEB SCH ×2 (07:39→20:25)
[2020-07-08 07:43] LABS: C-REACTIVE PROTEIN < 5.0 mg/L (<10.0)
[2020-07-08] MEDS: PANTOPRAZOLE SODIUM 20 MG TABLET.DR PO SCH ×2 (09:31→17:08)
[2020-07-08] MEDS: ASPIRIN 81 MG TABLET, ENT COATED PO SCH (09:31)
[2020-07-08] MEDS: FAMOTIDINE 20 MG TABLET PO SCH ×2 (09:31→21:25)
[2020-07-08] MEDS: PAROXETINE HCL 20 MG TABLET PO SCH ×2 (09:31→21:25)
[2020-07-08] MEDS: ENOXAPARIN SODIUM INJ 40 MG/0.4 ML DISP.SYRIN SUBCUT SCH (09:31)
[2020-07-08] MEDS: ATORVASTATIN CALCIUM 20 MG TABLET PO SCH (09:31)
[2020-07-08] MEDS: CHOLECALCIFEROL (D3) 1,000 UNIT (25 MCG) TABLET PO SCH (09:31)
[2020-07-08] MEDS: DEXAMETHASONE SOD PHOS INJ 10 MG/1 ML VIAL IV SCH (09:31)
[2020-07-08] MEDS: ZINC SULFATE 220 MG CAPSULE PO SCH (09:31)
[2020-07-08] MEDS: ASCORBIC ACID 500 MG TABLET PO SCH ×2 (09:31→17:08)
[2020-07-08] MEDS: METOPROLOL TARTRATE 25 MG TABLET PO SCH ×2 (09:31→21:25)
--- NOTE | 2020-07-08 16:08 | PDOC PROGRESS REPORT ---
Subjective Date:: 07/08/20 Subjective:: Patient seen by the bedside, she continues to improve clinically, follow-up ches t x-ray 07/07/2020 Patient improving clinically the chest x-ray is lagging in terms of improvement, the chest x-ray demonstrated bilateral diffuse infiltrate. Patient has finished IV remdesivir, still on IV dexamethasone 07/08/2020 Patient seen by the bedside, she continues to improve Reason For Visit: COVID Physical Exam Vital Signs: Temp Pulse Resp BP Pulse Ox 98.5 F 82 18 129/71 H 94 07/08/20 12:46 07/08/20 14:00 07/08/20 12:46 07/08/20 12:46 07/08/20 12:46 Intake & Output 07/07/20 07/08/20 07/09/20 06:59 06:59 06:59 Intake Total 1830 967 450 Output Total 800 900 Balance 1030 67 450 Weight 65.7 kg 66.4 kg General appearance: PRESENT: no acute distress Respiratory exam: PRESENT: clear to auscultation [place] Cardiovascular exam: PRESENT: +S1, +S2 GI/Abdominal exam: PRESENT: soft Neurological exam: PRESENT: alert Results Laboratory Results: 07/08/20 06:10 07/08/20 06:05 07/08/20 07/08/20 06:05 06:10 WBC 8.6 RBC 4.36 Hgb 13.1 Hct 37.6 MCV 86 MCH 30.0 MCHC 34.8 RDW 13.4 Plt Count 243 Seg Neutrophils % 81.5 H Sodium 139.1 Potassium 3.6 Chloride 104 Carbon Dioxide 28 Anion Gap 7 BUN 17 Creatinine 0.56 Est GFR ( Amer) > 60 Glucose 116 H Calcium 8.5 Ferritin 83.00 Total Bilirubin 0.6 AST 14 Alkaline Phosphatase 66 C-Reactive Protein < 5.0 Total Protein 5.5 L Albumin 2.8 L 07/01/20 00:17 Troponin I < 0.012 Impressions: Chest/Abdomen CTA 07/01/20 00:00 IMPRESSION: Extensive pneumonia. Consistent with covid 19. No pulmonary emboli. Chest X-Ray 07/06/20 00:00 IMPRESSION: No significant change in the appearance of the chest. Assessment & Plan - Diagnosis (1) Pneumonia due to COVID-19 virus Is this a current diagnosis for this admission?: Yes Plan: Continue IV dexamethasone (2) Pneumonia Qualifiers: Pneumonia type: due to unspecified organism Laterality: bilateral Lung location: unspecified part of lung Qualified Code(s): J18.9 - Pneumonia, unspecified organism Is this a current diagnosis for this admission?: Yes Plan: Continue IV antibiotic - Time Time Spent with patient: 25-34 minutes Level of Care: IMCU Medications reviewed and adjusted accordingly: Yes Anticipated discharge: Home Anticipated DC Timeframe: within 72 hours
[2020-07-08] MEDS: TRAZODONE HCL 50 MG TABLET PO SCH (21:25)
[2020-07-08] MEDS: GUAIFENESIN SYRP 200 MG/10 ML UDC PO PRN (21:25)
[2020-07-08] MEDS: AZITHROMYCIN 500 MG in DEXTROSE 5%-WATER 250 ML IV SCH (21:27)
[2020-07-09] MEDS: AZTREONAM 1 GM in DEXTROSE 5%-WATER 50 ML IV SCH ×4 (05:50→22:40)
[2020-07-09] MEDS: BENZONATATE 100 MG CAPSULE PO SCH ×3 (05:50→22:41)
[2020-07-09 06:59] LABS: ABSOLUTE BASOPHILS # (AUTO) 0.1 10^3/uL (0.0-0.2); ABSOLUTE LYMPHOCYTES (AUTO) 0.6 10^3/uL (0.5-4.7); ABSOLUTE NEUT (AUTO) 7.6 10^3/uL (1.7-8.2); BASOPHILS % (AUTO) 0.9 % (0-2); HEMATOCRIT 38.6 % (36.0-47.0); HEMOGLOBIN 13.1 g/dL (12.0-15.5); LYMPHOCYTES % (AUTO) 6.9 % (13-45); MEAN CORPUSCULAR HEMOGLOBIN 29.3 pg (27.0-33.4); MEAN CORPUSCULAR VOLUME 86 fl (80-97); MONOCYTES % (AUTO) 10.8 % (3-13); PLATELET COUNT 222 10^3/uL (150-450); RED BLOOD COUNT 4.47 10^6/uL (3.72-5.28); RED CELL DISTRIBUTION WIDTH 13.3 % (11.5-14.0); SEGMENTED NEUTROPHILS % (AUTO) 81.4 % (42-78); TOTAL CELLS COUNTED % (AUTO) 100 %; WHITE BLOOD COUNT 9.3 10^3/uL (4.0-10.5)
[2020-07-09 07:04] LABS: ALBUMIN 2.9 g/dL (3.5-5.0); ALKALINE PHOSPHATASE 72 U/L (38-126); ANION GAP 5 (5-19); ASPARTATE AMINO TRANSFERASE 16 U/L (14-36); BILIRUBIN,DIRECT 0.1 mg/dL (0.0-0.4); BILIRUBIN,TOTAL 0.7 mg/dL (0.2-1.3); BLOOD UREA NITROGEN 18 mg/dL (7-20); CALCIUM 8.6 mg/dL (8.4-10.2); CARBON DIOXIDE 30 mmol/L (22-30); CHLORIDE 105 mmol/L (98-107); GLUCOSE 100 mg/dL (75-110); POTASSIUM 3.9 mmol/L (3.6-5.0); TOTAL PROTEIN 5.6 g/dL (6.3-8.2)
[2020-07-09 07:37] LABS: C-REACTIVE PROTEIN < 5.0 mg/L (<10.0)
[2020-07-09] MEDS: BUDESONIDE NEB 0.25 MG/2 ML AMPUL NEB SCH ×2 (09:16→20:15)
[2020-07-09] MEDS: ASPIRIN 81 MG TABLET, ENT COATED PO SCH (09:29)
[2020-07-09] MEDS: FAMOTIDINE 20 MG TABLET PO SCH ×2 (09:29→22:40)
[2020-07-09] MEDS: PANTOPRAZOLE SODIUM 20 MG TABLET.DR PO SCH ×2 (09:29→17:30)
[2020-07-09] MEDS: DEXAMETHASONE SOD PHOS INJ 10 MG/1 ML VIAL IV SCH (09:29)
[2020-07-09] MEDS: ASCORBIC ACID 500 MG TABLET PO SCH ×2 (09:29→17:29)
[2020-07-09] MEDS: ZINC SULFATE 220 MG CAPSULE PO SCH (09:29)
[2020-07-09] MEDS: METOPROLOL TARTRATE 25 MG TABLET PO SCH ×2 (09:29→22:41)
[2020-07-09] MEDS: CHOLECALCIFEROL (D3) 1,000 UNIT (25 MCG) TABLET PO SCH (09:29)
[2020-07-09] MEDS: ATORVASTATIN CALCIUM 20 MG TABLET PO SCH (09:29)
[2020-07-09] MEDS: ENOXAPARIN SODIUM INJ 40 MG/0.4 ML DISP.SYRIN SUBCUT SCH (09:30)
[2020-07-09] MEDS: PAROXETINE HCL 20 MG TABLET PO SCH ×2 (09:30→22:40)
--- NOTE | 2020-07-09 20:02 | PDOC PROGRESS REPORT ---
Subjective Date:: 07/09/20 Subjective:: Patient seen by the bedside, she continues to improve clinically, follow-up ches t x-ray 07/07/2020 Patient improving clinically the chest x-ray is lagging in terms of improvement, the chest x-ray demonstrated bilateral diffuse infiltrate. Patient has finished IV remdesivir, still on IV dexamethasone 07/08/2020 Patient seen by the bedside, she continues to improve 07/09/2020 Patient seen by the bedside, she is improving, she will be discharge home tomorrow Reason For Visit: COVID Physical Exam Vital Signs: Temp Pulse Resp BP Pulse Ox 99.4 F 81 17 145/81 H 94 07/09/20 16:22 07/09/20 16:22 07/09/20 12:44 07/09/20 16:22 07/09/20 16:22 Intake & Output 07/08/20 07/09/20 07/10/20 06:59 06:59 06:59 Intake Total 967 1025 1020 Output Total 900 Balance 67 1025 1020 Weight 66.4 kg 65.9 kg 65.9 kg General appearance: PRESENT: no acute distress Eye exam: PRESENT: PERRLA Respiratory exam: PRESENT: clear to auscultation [place] Cardiovascular exam: PRESENT: +S1, +S2 GI/Abdominal exam: PRESENT: soft Neurological exam: PRESENT: alert Results Laboratory Results: 07/09/20 05:17 07/09/20 05:17 07/09/20 07/09/20 05:17 05:17 WBC 9.3 RBC 4.47 Hgb 13.1 Hct 38.6 MCV 86 MCH 29.3 MCHC 34.0 RDW 13.3 Plt Count 222 Seg Neutrophils % 81.4 H Sodium 140.4 Potassium 3.9 Chloride 105 Carbon Dioxide 30 Anion Gap 5 BUN 18 Creatinine 0.63 Est GFR ( Amer) > 60 Glucose 100 Calcium 8.6 Ferritin 78.90 Total Bilirubin 0.7 AST 16 Alkaline Phosphatase 72 C-Reactive Protein < 5.0 Total Protein 5.6 L Albumin 2.9 L 07/01/20 00:17 Troponin I < 0.012 Impressions: Chest/Abdomen CTA 07/01/20 00:00 IMPRESSION: Extensive pneumonia. Consistent with covid 19. No pulmonary emboli. Chest X-Ray 07/06/20 00:00 IMPRESSION: No significant change in the appearance of the chest. Assessment & Plan - Diagnosis (1) Pneumonia due to COVID-19 virus Is this a current diagnosis for this admission?: Yes Plan: Continue IV dexamethasone (2) Pneumonia Qualifiers: Pneumonia type: due to unspecified organism Laterality: bilateral Lung location: unspecified part of lung Qualified Code(s): J18.9 - Pneumonia, unspecified organism Is this a current diagnosis for this admission?: Yes Plan: Continue IV antibiotic - Time Time Spent with patient: 15-24 minutes Level of Care: IMCU Medications reviewed and adjusted accordingly: Yes Anticipated discharge: Home Anticipated DC Timeframe: within 24 hours
--- NOTE | 2020-07-09 20:08 | PDOC DISCHARGE SUMMARY ---
Impression - Admit/DC Date/PCP Admission Date/Primary Care Provider: 07/01/20 02:18 RASHAAD BOATENG MD Discharge Date: 07/10/20 - Discharge Diagnosis (1) Pneumonia due to COVID-19 virus Is this a current diagnosis for this admission?: Yes (2) Pneumonia Is this a current diagnosis for this admission?: Yes - Additional Information Referrals: RASHAAD BOATENG MD [Primary Care Provider] - 07/16/20 9:30 am Home Medications: RX: Paroxetine HCl [Paxil] 20 mg PO BID 05/27/11 RX: Trazodone HCl [Desyrel 50 mg Tablet] 50 mg PO QHS 04/06/12 RX: Atorvastatin Calcium [Lipitor 20 mg Tablet] 20 mg PO DAILY 04/20/19 RX: Metoprolol Tartrate [Lopressor 25 mg Tablet] 25 mg PO Q12 07/02/20 RX: Omeprazole 20 mg PO BID 07/03/20 RX: Acetaminophen [Tylenol 325 mg Tablet] 650 mg PO Q4HP PRN tablet 07/09/20 RX: Aspirin [Ecotrin 81 mg EC Tablet] 81 mg PO DAILY #0 tabec 07/09/20 History of Present Illiness History of Present Illness: JARAD MENDOZA is a 64 year old female ,She has COVID-19 positive test (U07.1, COVID-19) with Acute Pneumonia (J12.89, Other viral pneumonia) (If respiratory failure or sepsis present, add as separate assessment), The chest x-ray demonstrated diffuse bilateral infiltrate, she required oxygen supplementation via NIPPV, Oxymizer, high flow oxygen.She also was treated with IV dexamethasone, remdesivir, She responded very well to treatment with resolution of her respiratory symptoms the chest x-ray finding lag behind the clinical response.She was admitted with the spouse also had Covid pneumonia, she is discharged home today the spouse is still in the hospital hopefully discharge home tomorrow Physical Exam Vital Signs: Temp Pulse Resp BP Pulse Ox 99.4 F 81 17 145/81 H 94 07/09/20 16:22 07/09/20 16:22 07/09/20 12:44 07/09/20 16:22 07/09/20 16:22 Intake & Output 07/08/20 07/09/20 07/10/20 06:59 06:59 06:59 Intake Total 967 1025 1020 Output Total 900 Balance 67 1025 1020 Weight 66.4 kg 65.9 kg 65.9 kg General appearance: PRESENT: no acute distress Eye exam: PRESENT: PERRLA Respiratory exam: PRESENT: clear to auscultation [place] Cardiovascular exam: PRESENT: +S1, +S2 GI/Abdominal exam: PRESENT: soft Results Laboratory Results: WBC 9.3 10^3/uL (4.0-10.5) 07/09/20 05:17 RBC 4.47 10^6/uL (3.72-5.28) 07/09/20 05:17 Hgb 13.1 g/dL (12.0-15.5) 07/09/20 05:17 Hct 38.6 % (36.0-47.0) 07/09/20 05:17 MCV 86 fl (80-97) 07/09/20 05:17 MCH 29.3 pg (27.0-33.4) 07/09/20 05:17 MCHC 34.0 g/dL (32.0-36.0) 07/09/20 05:17 RDW 13.3 % (11.5-14.0) 07/09/20 05:17 Plt Count 222 10^3/uL (150-450) 07/09/20 05:17 Lymph % (Auto) 6.9 % (13-45) L 07/09/20 05:17 Daniels % (Auto) 10.8 % (3-13) 07/09/20 05:17 Eos % (Auto) 0.0 % (0-6) 07/09/20 05:17 Baso % (Auto) 0.9 % (0-2) 07/09/20 05:17 Absolute Neuts (auto) 7.6 10^3/uL (1.7-8.2) 07/09/20 05:17 Absolute Lymphs (auto) 0.6 10^3/uL (0.5-4.7) 07/09/20 05:17 Absolute Monos (auto) 1.0 10^3/uL (0.1-1.4) 07/09/20 05:17 Absolute Eos (auto) 0.0 10^3/uL (0.0-0.6) 07/09/20 05:17 Absolute Basos (auto) 0.1 10^3/uL (0.0-0.2) 07/09/20 05:17 Seg Neutrophils % 81.4 % (42-78) H 07/09/20 05:17 VBG pH 7.37 (7.30-7.42) 07/01/20 00:17 VBG pCO2 50.2 mmHg (35-63) 07/01/20 00:17 VBG HCO3 28.6 mmol/L (20-32) 07/01/20 00:17 VBG Base Excess 2.4 mmol/L 07/01/20 00:17 Sodium 140.4 mmol/L (137-145) 07/09/20 05:17 Potassium 3.9 mmol/L (3.6-5.0) 07/09/20 05:17 Chloride 105 mmol/L (98-107) 07/09/20 05:17 Carbon Dioxide 30 mmol/L (22-30) 07/09/20 05:17 Anion Gap 5 (5-19) 07/09/20 05:17 BUN 18 mg/dL (7-20) 07/09/20 05:17 Creatinine 0.63 mg/dL (0.52-1.25) 07/09/20 05:17 Est GFR ( Amer) > 60 (>60) 07/09/20 05:17 Est GFR (Non-Af Amer) Cancelled 06/30/20 23:12 Est GFR (MDRD) Non-Af > 60 (>60) 07/09/20 05:17 Glucose 100 mg/dL (75-110) 07/09/20 05:17 Lactic Acid 1.1 mmol/L (0.7-2.1) 06/30/20 23:12 Calcium 8.6 mg/dL (8.4-10.2) 07/09/20 05:17 Ferritin 78.90 ng/mL (11.1-264.0) 07/09/20 05:17 Total Bilirubin 0.7 mg/dL (0.2-1.3) 07/09/20 05:17 Direct Bilirubin 0.1 mg/dL (0.0-0.4) 07/09/20 05:17 Neonat Total Bilirubin Not Reportable 07/09/20 05:17 Neonat Direct Bilirubin Not Reportable 07/09/20 05:17 Neonat Indirect Bili Not Reportable 07/09/20 05:17 AST 16 U/L (14-36) 07/09/20 05:17 ALT 17 U/L (<35) 07/09/20 05:17 Alkaline Phosphatase 72 U/L (38-126) 07/09/20 05:17 Troponin I < 0.012 ng/mL 07/01/20 00:17 C-Reactive Protein < 5.0 mg/L (<10.0) 07/09/20 05:17 Total Protein 5.6 g/dL (6.3-8.2) L 07/09/20 05:17 Albumin 2.9 g/dL (3.5-5.0) L 07/09/20 05:17 EGFR Cancelled 06/30/20 23:12 Luciano Human Metapneumo PCR NOT DETECTED (NOT DETECT) 06/30/20 23:26 Adenovirus (PCR) NOT DETECTED (NOT DETECT) 06/30/20 23:26 B. pertussis DNA (PCR) NOT DETECTED (NOT DETECT) 06/30/20 23:26 B.parapertussis DNA PCR NOT DETECTED (NOT DETECT) 06/30/20 23:26 C. pneumoniae DNA (PCR) NOT DETECTED (NOT DETECT) 06/30/20 23:26 Coronavirus OC43 (PCR) NOT DETECTED (NOT DETECT) 06/30/20 23:26 Coronavirus HKU1 (PCR) NOT DETECTED (NOT DETECT) 06/30/20 23:26 Coronavirus 229E (PCR) NOT DETECTED (NOT DETECT) 06/30/20 23:26 Coronavirus NL63 (PCR) NOT DETECTED (NOT DETECT) 06/30/20 23:26 Influenza A (Rapid) NEGATIVE (NEGATIVE) 06/30/20 23:26 Influenza A (H1) PCR NOT DETECTED (NOT DETECT) 06/30/20 23:26 Influ A (H1N1/09) PCR NOT DETECTED (NOT DETECT) 06/30/20 23:26 Influenza A (H3) PCR NOT DETECTED (NOT DETECT) 06/30/20 23:26 Influenza Type A (PCR) NOT DETECTED (NOT DETECT) 06/30/20 23:26 Influenza B (Rapid) NEGATIVE (NEGATIVE) 06/30/20 23:26 Influenza Type B (PCR) NOT DETECTED (NOT DETECT) 06/30/20 23:26 M. pneumoniae (PCR) NOT DETECTED (NOT DETECT) 06/30/20 23:26 Parainfluenza 1 (PCR) NOT DETECTED (NOT DETECT) 06/30/20 23:26 Parainfluenza 2 (PCR) NOT DETECTED (NOT DETECT) 06/30/20 23:26 Parainfluenza 3 (PCR) NOT DETECTED (NOT DETECT) 06/30/20 23:26 Parainfluenza 4 (PCR) NOT DETECTED (NOT DETECT) 06/30/20 23:26 RSV (PCR) NOT DETECTED (NOT DETECT) 06/30/20 23:26 Entero/Rhino (PCR) NOT DETECTED (NOT DETECT) 06/30/20 23:26 SARS-CoV-2 (PCR) DETECTED (NOT DETECT) H 06/30/20 23:26 07/01/20 00:17 Troponin I < 0.012 Impressions: Chest X-Ray 06/30/20 22:58 IMPRESSION: Bilateral pneumonia. Chest/Abdomen CTA 07/01/20 00:00 IMPRESSION: Extensive pneumonia. Consistent with covid 19. No pulmonary emboli. Chest X-Ray 07/03/20 00:00 IMPRESSION: Slightly improved aeration demonstrating persistent lingular and right upper lobe airspace opacities. Chest X-Ray 07/06/20 00:00 IMPRESSION: No significant change in the appearance of the chest. Stroke Is this a Stroke Patient?: No Acute Heart Failure Is this a Heart Failure Patient?: No
[2020-07-09] MEDS ORDERED: (PENDING PHARMACY ID) (Omeprazole [Omeprazole] 20 MG Capsule.Dr) PO SCH (20:15)
[2020-07-09] MEDS: TRAZODONE HCL 50 MG TABLET PO SCH (22:41)
[2020-07-09] MEDS: AZITHROMYCIN 500 MG in DEXTROSE 5%-WATER 250 ML IV SCH (23:34)
[2020-07-10 05:13] LABS: ABSOLUTE LYMPHOCYTES (AUTO) 0.7 10^3/uL (0.5-4.7); ABSOLUTE MONOCYTES (AUTO) 1.5 10^3/uL (0.1-1.4); ABSOLUTE NEUT (AUTO) 8.6 10^3/uL (1.7-8.2); BASOPHILS % (AUTO) 0.4 % (0-2); EOSINOPHILS % (AUTO) 0.1 % (0-6); HEMATOCRIT 40.2 % (36.0-47.0); HEMOGLOBIN 13.6 g/dL (12.0-15.5); LYMPHOCYTES % (AUTO) 6.5 % (13-45); MEAN CORPUSCULAR HEMOGLOBIN 29.3 pg (27.0-33.4); MEAN CORPUSCULAR VOLUME 86 fl (80-97); MONOCYTES % (AUTO) 13.5 % (3-13); PLATELET COUNT 222 10^3/uL (150-450); RED BLOOD COUNT 4.66 10^6/uL (3.72-5.28); RED CELL DISTRIBUTION WIDTH 13.5 % (11.5-14.0); SEGMENTED NEUTROPHILS % (AUTO) 79.5 % (42-78); TOTAL CELLS COUNTED % (AUTO) 100 %; WHITE BLOOD COUNT 10.8 10^3/uL (4.0-10.5)
[2020-07-10 05:47] LABS: ALBUMIN 3.1 g/dL (3.5-5.0); ALKALINE PHOSPHATASE 75 U/L (38-126); ANION GAP 8 (5-19); ASPARTATE AMINO TRANSFERASE 17 U/L (14-36); BILIRUBIN,DIRECT 0.2 mg/dL (0.0-0.4); BILIRUBIN,TOTAL 0.6 mg/dL (0.2-1.3); BLOOD UREA NITROGEN 18 mg/dL (7-20); CALCIUM 8.6 mg/dL (8.4-10.2); CARBON DIOXIDE 29 mmol/L (22-30); CHLORIDE 104 mmol/L (98-107); GLUCOSE 99 mg/dL (75-110); TOTAL PROTEIN 5.8 g/dL (6.3-8.2)
[2020-07-10] MEDS: BENZONATATE 100 MG CAPSULE PO SCH (05:51)
[2020-07-10] MEDS: AZTREONAM 1 GM in DEXTROSE 5%-WATER 50 ML IV SCH (05:51)
[2020-07-10 06:18] LABS: C-REACTIVE PROTEIN < 5.0 mg/L (<10.0)
[2020-07-10] MEDS: BUDESONIDE NEB 0.25 MG/2 ML AMPUL NEB SCH (07:46)
[2020-07-10] MEDS: CHOLECALCIFEROL (D3) 1,000 UNIT (25 MCG) TABLET PO SCH (10:00)
[2020-07-10] MEDS: METOPROLOL TARTRATE 25 MG TABLET PO SCH (10:00)
[2020-07-10] MEDS: FAMOTIDINE 20 MG TABLET PO SCH (10:00)
[2020-07-10] MEDS: ENOXAPARIN SODIUM INJ 40 MG/0.4 ML DISP.SYRIN SUBCUT SCH ×2 (10:00→10:12)
[2020-07-10] MEDS: ATORVASTATIN CALCIUM 20 MG TABLET PO SCH (10:01)
[2020-07-10] MEDS: PAROXETINE HCL 20 MG TABLET PO SCH (10:01)
[2020-07-10] MEDS: ZINC SULFATE 220 MG CAPSULE PO SCH (10:01)
[2020-07-10] MEDS: ASPIRIN 81 MG TABLET, ENT COATED PO SCH (10:01)
[2020-07-10] MEDS: ASCORBIC ACID 500 MG TABLET PO SCH (10:01)
[2020-07-10] MEDS: DEXAMETHASONE SOD PHOS INJ 10 MG/1 ML VIAL IV SCH (10:01)
[2020-07-10] MEDS: PANTOPRAZOLE SODIUM 20 MG TABLET.DR PO SCH (10:01)
[2020-07-10 10:54] VITALS: BP 130/72
== END 2020-07-10 11:24 | disposition home or self-care (01) | DRG 177 ==
LOC: ER 22:11 → EH 07-01 02:18 → 3N 07-01 04:18 → UNDODISIN 07-02 16:00
PROVIDERS: ADMIT Internal Medicine; ATTEND Internal Medicine
PROC: XW033E5 Introduction of Remdesivir Anti-infective into Peripheral Vein, Percutaneous Approach, New Technology Group 5 (ICD-10-PCS; principal; 2020-07-01)
DX: U07.1 COVID-19 (principal); J12.82 Pneumonia due to coronavirus disease 2019; I10 Essential (primary) hypertension; E78.5 Hyperlipidemia, unspecified; J45.40 Moderate persistent asthma, uncomplicated; K21.9 Gastro-esophageal reflux disease without esophagitis; M19.90 Unspecified osteoarthritis, unspecified site; Z79.899 Other long term (current) drug therapy; Z88.0 Allergy status to penicillin; Z88.1 Allergy status to other antibiotic agents
CPT/HCPCS: 0202U; 36415; 71045; 71275; 80053; 82728; 82803; 83605; 84484; 85025; 86140; 87040; 87804; 93005; 93010; 94640; 96365; 99285; C9803; J0456; J1100; J1650; J2405; J3490; J7050; J7060

== ENCOUNTER → 2020-07-17 | Outpatient (CLI) | payer MEDICARE ==
--- NOTE | 2020-07-17 19:35 | RADIOLOGY REPORT (SQ) ---
EXAM DESCRIPTION: CHEST 2 VIEWS IMAGES COMPLETED DATE/TIME: 07/17/2020 2:19 pm REASON FOR STUDY: COVID COMPARISON: 07/06/2020 EXAM PARAMETERS: NUMBER OF VIEWS: two views TECHNIQUE: Digital Frontal and Lateral radiographic views of the chest acquired. RADIATION DOSE: NA LIMITATIONS: none FINDINGS: LUNGS AND PLEURA: Lungs are mildly hypoinflated. Stable elevation of the right hemidiaphr agm. There are some persistent patchy opacities most pronounced in the right upper lobe and left anthony g base. No pleural effusion or pneumothorax. MEDIASTINUM AND HILAR STRUCTURES: No masses or contour abnormalities. HEART AND VASCULAR STRUCTURES: Heart normal size. No evidence for failure. BONES: No acute findings. HARDWARE: None in the chest. OTHER: No other significant finding. IMPRESSION: Persistent bilateral opacities, not significantly changed. TECHNICAL DOCUMENTATION: JOB ID: [id number] 2010 [employer]- All Rights Reserved Reading location - IP/workstation name: [email or web address]
== END ==
LOC: RAD 16:35
PROVIDERS: ATTEND Internal Medicine
DX: U07.1 COVID-19 (principal)
CPT/HCPCS: 71046